=== PATIENT | female | born 1995 | race Caucasian/White ===

== ENCOUNTER 2020-04-13 06:28 | Emergency (ER) | payer MEDICAID, SELFPAY ==
[2020-04-13 06:36] VITALS: BP 132/81; PULSE 102; RESP 20; TEMP 36.6; O2SAT 97; BMI 34.0
--- NOTE | 2020-04-13 07:02 | ED_ITS ---
HPI - General Adult General Chief complaint: General Medical Stated complaint: Covid symptoms Time Seen by Provider: 04/13/20 07:01 History of Present Illness HPI narrative: Patient is a 25-year-old female presented today with coughing upper respiratory symptoms that been ongoing for about 2 days. Patient from home. Currently is about 23 weeks . Currently being follow at [facility]. Family member tested positive for the coronavirus. Patient denies any change in smell or taste. Currently is not having any new abdominal pain. Her current lower abdominal pain that is worse with sitting up. Improved with lying down. This pain is constant it is old. Had an ultrasound of this about a week ago. It shows good intrauterine . Patient denies any pain on urination. Denies any vaginal bleeding. No contraction. Patient from home Related Data Allergies Allergy/AdvReac Type Severity Reaction Status Date / Time No Known Allergies Allergy Unverified 01/06/20 16:16 [No Known Allergies*] Review of Systems Review of Systems: Constitutional: No Weight loss, No Fever, No Chills, No Night Sweats, No Fatigue, No Malaise ENT/Mouth: No Hearing loss, No Ear Pain, No Nasal Congestion, No Sinus Pain, No Hoarseness, No sore throat, No Rhinorrhea, No Swallowing Difficulty Eyes: No Eye Pain, No Swelling, No Redness, No Foreign Body, No Discharge, No Vision Changes Cardiovascular: No Chest Pain, No SOB, No Dyspnea on Exertion, No Orthopnea, No Edema, No Palpitations Respiratory: + Cough, No Sputum, No Wheezing, No Smoke Exposure, No Dyspnea Gastrointestinal: No Nausea, No Vomiting, No Diarrhea, No Constipation, No abdominal Pain, No Hematochezia, No Melena Genitourinary: no irregular bleeding, No Dysuria, No Urinary Frequency, No Hematuria, No Urinary Incontinence, No Urgency, No Flank Pain, No Urinary Flow Changes, No Hesitancy Musculoskeletal: No joint pain, No Myalgias, No Joint Swelling Skin: No Skin Lesions, No rash Neuro: No Weakness, No Numbness, No Paresthesias, No Loss of Consciousness, No Dizziness, No Headache Psych: No Anxiety/Panic, No Depression, No SI/HI/AH/VH, No Social Issues, Heme/Lymph: No Bruising, No Bleeding,No Lymphadenopathy Endocrine: No Polyuria, No Polydipsia, No Temperature Intolerance Yes all other systems are reviewed and are negative [facility] Past Medical History Medical History Social History Social History Advance Directives: No Physical Exam Vital Signs: Vital Signs: Last Vital Signs Temp 98 F 04/13/20 06:36 Pulse 102 H 04/13/20 06:36 Resp 20 04/13/20 06:36 BP 132/81 04/13/20 06:36 Pulse Ox 97 04/13/20 06:36 Body Mass Index 34.0 Appearance: Alert. Oriented X3. No acute distress. Eyes: Pupils equal, round and reactive to light. ENT: Pharynx normal. Neck: Normal inspection. Neck supple. No lymph nodes noted. No crepitus CVS: Normal heart rate and rhythm. Pulses normal. Normal S1 and S2 Respiratory: No respiratory distress. Breath sounds normal. No Wheezing. No rales Abdomen: Gravid abdomen with fundal height at the level above umbilicus. Skin: Skin warm and dry. Normal skin color. Normal skin turgor. Extremities: No lower extremity edema. Neurovascular intact to all extremities. No Lacerations. No Rash Neuro: Oriented X 3. No motor deficit. No sensory deficit. Moving all extermities. No slurred speech Medical Decision Making MDM Narrative Medical decision making narrative: Patient well-appearing O2 sat at 98% on room air. Will check heart tone. Will discharge patient home. Close follow- up on an outpatient basis. Likely has coronavirus will test for the virus. Patient is currently in stable condition will discharge will ask patient to follow strict home quarantine. Discharge Plan Discharge Clinical Impression: COVID-19 Patient Disposition: Home, Self-Care Instructions: COVID-19 (Coronavirus Disease 2019) (ED) Referrals: [facility] [Primary Care Provider] - 2 days
--- NOTE | 2020-04-13 07:18 | ED.GENADULT ---
HPI - General Adult General Chief complaint: General Medical Stated complaint: Covid symptoms Time Seen by Provider: 04/13/20 07:01 Related Data Allergies Allergy/AdvReac Type Severity Reaction Status Date / Time No Known Allergies Allergy Unverified 01/06/20 16:16 [No Known Allergies*] [facility], [facility] Past Medical History Medical History Social History Social History Advance Directives: No Physical Exam Vital Signs: Vital Signs: Last Vital Signs Temp 98 F 04/13/20 06:36 Pulse 102 H 04/13/20 06:36 Resp 20 04/13/20 06:36 BP 132/81 04/13/20 06:36 Pulse Ox 97 04/13/20 06:36 Body Mass Index 34.0 Discharge Plan Discharge Clinical Impression: COVID-19 Patient Disposition: Home, Self-Care Instructions: COVID-19 (Coronavirus Disease 2019) (ED) Referrals: [facility] [Primary Care Provider] - 2 days
== END 2020-04-13 08:01 | disposition home or self-care (01) ==
PROVIDERS: Emergency Provider Emergency Medicine Emergency Medical Services
DX: O98.512 Other viral diseases complicating pregnancy, second trimester (principal); O99.512 Diseases of the respiratory system complicating pregnancy, second trimester; U07.1 COVID-19; J98.8 Other specified respiratory disorders; Z3A.23 23 weeks gestation of pregnancy
CPT/HCPCS: 99283; U0003

== ENCOUNTER 2020-12-21 07:38 | Emergency (ER) | payer MEDICAID, SELFPAY ==
[2020-12-21 08:00] VITALS: BP 120/78; PULSE 80; RESP 18; TEMP 36.9; O2SAT 99; BMI 35.9
--- NOTE | 2020-12-21 08:54 | ED_ITS ---
HPI - General Adult General Chief complaint: Upper Respiratory Symptoms Stated complaint: flu like symptoms Time Seen by Provider: 12/21/20 08:43 Source: patient Mode of arrival: ambulatory Limitations: no limitations History of Present Illness HPI narrative: Patient comes emergency room complaining of 5 days of abdominal cramping, vomiting, diarrhea. Patient states she was exposed to a COVID patient five days ago. Related Data Previous Rx's Medication Instructions Recorded loperamide 2 mg tablet 2 mg PO Q4H PRN #10 tab 12/21/20 ondansetron HCl 4 mg tablet 4 mg PO Q6H PRN #10 tab 12/21/20 (Zofran) Allergies Allergy/AdvReac Type Severity Reaction Status Date / Time No Known Allergies Allergy Unverified 01/06/20 16:16 [No Known Allergies*] Review of Systems Review of Systems: Constitutional : No Weight loss, No Fever, No Chills, No Night Sweats, No Fatigue, No Malaise ENT/Mouth : No Hearing loss, No Ear Pain, No Nasal Congestion, No Sinus Pain, No Hoarseness, No sore throat, No Rhinorrhea, No Swallowing Difficulty Eyes: No Eye Pain, No Swelling, No Redness, No Foreign Body, No Discharge, No Vision Changes Cardiovascular : No Chest Pain, No SOB, No Dyspnea on Exertion, No Orthopnea, No Edema, No Palpitations Respiratory : No Cough, No Sputum, No Wheezing, No Smoke Exposure, No Dyspnea Gastrointestinal : Complaining of nausea, vomiting, diarrhea, abdominal cramping, No Hematochezia, No Melena Genitourinary : no irregular bleeding, No Dysuria, No Urinary Frequency, No Hematuria, No Urinary Incontinence, No Urgency, No Flank Pain, No Urinary Flow Changes, No Hesitancy Musculoskeletal : No joint pain, No Myalgias, No Joint Swelling Skin : No Skin Lesions, No rash Neuro : No Weakness, No Numbness, No Paresthesias, No Loss of Consciousness, No Dizziness, No Headache Psych : No Anxiety/Panic, No Depression, No SI/HI/AH/VH, No Social Issues, Heme/Lymph: No Bruising, No Bleeding,No Lymphadenopathy Endocrine : No Polyuria, No Polydipsia, No Temperature Intolerance PMFSH Past Medical History Medical History Asthma Social History Social History Patient Tobacco Use Status: Never used Tobacco Smoked in Last 30 Days: No Use of substances other than those prescribed or required for medical reasons: No Advance Directives: No Advance Directives Information Provided: No Physical Exam Vital Signs: Vital Signs: Last Vital Signs Temp 98.4 F 12/21/20 08:00 Pulse 82 12/21/20 10:24 Resp 14 12/21/20 10:24 BP 114/56 L 12/21/20 10:24 Pulse Ox 100 12/21/20 10:25 Body Mass Index 35.9 Const: Other: Appearance: Alert. Oriented X3. No acute distress. Eyes: Pupils equal, round and reactive to light. ENT: Pharynx normal. Neck: Normal inspection. Neck supple. No lymph nodes noted. No crepitus CVS: Normal heart rate and rhythm. Pulses normal. Normal S1 and S2 Respiratory: No respiratory distress. Breath sounds normal. No Wheezing. No rales Abdomen: Soft , mild diffuse abdominal cramping, No rigidity. No distention. good BS x4 Skin: Skin warm and dry. Normal skin color. Normal skin turgor. Extremities: No lower extremity edema. No Lacerations. No Rash Neuro: Oriented X 3. No motor deficit. No sensory deficit. Moving all extermities. No slurred speech. Course Course Course Narrative: Patient likely having a viral syndrome. Patient tested negative for COVID-19 Medical Decision Making Lab Data Result diagrams: 12/21/20 09:28 12/21/20 09:28 Labs: Lab Results 12/21/20 12/21/20 12/21/20 Range/Units 09:11 09:28 09:28 WBC 12.7 H (4.8-10.8) X10*3/uL RBC 4.64 (4.20-5.50) X10*6/uL Hgb 13.9 (12.0-16.0) g/dl Hct 40.3 (37-47) % MCV 86.9 (80-98) fL MCH 30.0 (27.0-33.0) pg MCHC 34.5 (31.0-35.0) g/dl RDW 11.9 (11.0-16.0) % Plt Count 298 (160-400) X10*3/uL MPV 9.4 (9.4-12.3) fL Immature Gran % (Auto) 0.4 (0.0-0.4) % Neut % (Auto) 84.3 H (45-73) % Lymph % (Auto) 10.7 L (20-40) % [place] % (Auto) 3.8 (2-11) % Eos % (Auto) 0.3 (0-4) % Baso % (Auto) 0.5 (0-2) % Lymph # (Auto) 1.4 (1.2-4.9) X10*3/uL [place] # (Auto) 0.5 (0.1-1.2) X10*3/uL Eos # (Auto) 0.0 (0.0-0.4) X10*3/uL Baso # (Auto) 0.1 (0.0-0.2) X10*3/uL Abs Immat Gran (auto) 0.05 H (0.00-0.03) X10*3/uL Absolute Neuts (auto) 10.7 H (2.0-8.3) X10*3/uL Absolute Nucleated RBC 0.000 (0.0-0.012) X10*3/uL Nucleated RBC % (auto) 0.0 (0.0-0.2) /100WBC Sodium 138 (135-145) mmol/L Potassium 4.1 (3.3-5.1) mmol/L Chloride 113 H (96-108) mmol/L Carbon Dioxide 19 L (22-29) mmol/L Anion Gap 10 L (12-20) BUN 7 L (9-16) mg/dL Creatinine 0.67 (0.5-1.4) mg/dL Estim Creat Clear Calc 125.7 Estimated GFR > 60 Random Glucose 114 (60-115) mg/dL Calcium 9.1 (8.4-10.2) mg/dL Total Bilirubin 0.4 (0.0-1.0) mg/dL Direct Bilirubin < 0.2 (0.0-0.5) mg/dL AST 17 (5-31) U/L ALT 19 (0-31) U/L Alkaline Phosphatase 64 (39-117) U/L Total Protein 7.0 (6.5-8.0) g/dL Albumin 4.3 (3.5-5.0) g/dL Urine Color Urine Appearance Urine pH (5.0-8.0) Ur Specific [place] (1.005-1.025) Urine Protein (NEG-TRACE) MG/DL Urine Glucose (UA) (NEG) MG/DL Urine Ketones (NEG) MG/DL Urine Blood (NEG) Urine Nitrite (NEG) Ur Leukocyte Esterase (NEG) Urine Test (NEGATIVE) COVID-19 (BRYAN) Negative (Negative) COVID-19 Clin Com See Note 12/21/20 12/21/20 Range/Units 10:23 10:23 WBC (4.8-10.8) X10*3/uL RBC (4.20-5.50) X10*6/uL Hgb (12.0-16.0) g/dl Hct (37-47) % MCV (80-98) fL MCH (27.0-33.0) pg MCHC (31.0-35.0) g/dl RDW (11.0-16.0) % Plt Count (160-400) X10*3/uL MPV (9.4-12.3) fL Immature Gran % (Auto) (0.0-0.4) % Neut % (Auto) (45-73) % Lymph % (Auto) (20-40) % [place] % (Auto) (2-11) % Eos % (Auto) (0-4) % Baso % (Auto) (0-2) % Lymph # (Auto) (1.2-4.9) X10*3/uL [place] # (Auto) (0.1-1.2) X10*3/uL Eos # (Auto) (0.0-0.4) X10*3/uL Baso # (Auto) (0.0-0.2) X10*3/uL Abs Immat Gran (auto) (0.00-0.03) X10*3/uL Absolute Neuts (auto) (2.0-8.3) X10*3/uL Absolute Nucleated RBC (0.0-0.012) X10*3/uL Nucleated RBC % (auto) (0.0-0.2) /100WBC Sodium (135-145) mmol/L Potassium (3.3-5.1) mmol/L Chloride (96-108) mmol/L Carbon Dioxide (22-29) mmol/L Anion Gap (12-20) BUN (9-16) mg/dL Creatinine (0.5-1.4) mg/dL Estim Creat Clear Calc Estimated GFR Random Glucose (60-115) mg/dL Calcium (8.4-10.2) mg/dL Total Bilirubin (0.0-1.0) mg/dL Direct Bilirubin (0.0-0.5) mg/dL AST (5-31) U/L ALT (0-31) U/L Alkaline Phosphatase (39-117) U/L Total Protein (6.5-8.0) g/dL Albumin (3.5-5.0) g/dL Urine Color YELLOW Urine Appearance CLEAR Urine pH 6.0 (5.0-8.0) Ur Specific [place] 1.015 (1.005-1.025) Urine Protein NEG (NEG-TRACE) MG/DL Urine Glucose (UA) NEG (NEG) MG/DL Urine Ketones NEG (NEG) MG/DL Urine Blood NEG (NEG) Urine Nitrite NEG (NEG) Ur Leukocyte Esterase NEG (NEG) Urine Test NEGATIVE (NEGATIVE) COVID-19 (BRYAN) (Negative) COVID-19 Clin Com Discharge Plan Discharge Clinical Impression: Acute viral syndrome Patient Disposition: Home, Self-Care Instructions: Viral Syndrome (ED) Additional Instructions: Drink plenty of fluids. Please follow-up with your primary care physician tomorrow. If you have any worsening or new symptoms, please return to the emergency room or call 911 Prescriptions: New ondansetron HCl [Zofran] 4 mg tablet 4 mg PO Q6H PRN (Reason: nausea and vomiting) Qty: 10 RF: 0 loperamide 2 mg tablet 2 mg PO Q4H PRN (Reason: loose stool) Qty: 10 RF: 0 Stand Alone Forms: Work/School Release
[2020-12-21 09:31] LABS: MANUAL DIFF FLAG NO
[2020-12-21] MEDS: Ondansetron ODT 4 MG TAB.RAPDIS TRANSLINGU (09:31)
[2020-12-21] MEDS: Loperamide HCl 2 MG CAPSULE 4 MG PO (09:31)
[2020-12-21 09:34] LABS: COVID-19 Test Negative (Negative); IDNOW Serial# 55D5AD1C
[2020-12-21 09:39] LABS: Basophils Absolute Auto 0.1 X10*3/uL (0.0-0.2); Basophils Percent Auto 0.5 % (0-2); Eosinophils Percent Auto 0.3 % (0-4); Hematocrit 40.3 % (37-47); Hemoglobin 13.9 g/dl (12.0-16.0); Imm Gran Abs Auto 0.05 X10*3/uL (0.00-0.03); Imm Gran Pct Auto 0.4 % (0.0-0.4); Lymphocytes Absolute Auto 1.4 X10*3/uL (1.2-4.9); Lymphocytes Percent Auto 10.7 % (20-40); Mean Corpuscular HGB Conc 34.5 g/dl (31.0-35.0); Mean Corpuscular Volume 86.9 fL (80-98); Mean Platelet Volume 9.4 fL (9.4-12.3); Monocytes Absolute Auto 0.5 X10*3/uL (0.1-1.2); Monocytes Percent Auto 3.8 % (2-11); Neutrophils Absolute Auto 10.7 X10*3/uL (2.0-8.3); Neutrophils Percent Auto 84.3 % (45-73); Platelet Count 298 X10*3/uL (160-400); Red Blood Count 4.64 X10*6/uL (4.20-5.50); Red Cell Distribution Width 11.9 % (11.0-16.0); White Blood Count 12.7 X10*3/uL (4.8-10.8)
[2020-12-21 09:53] LABS: Alanine Aminotransferase 19 U/L (0-31); Albumin Level 4.3 g/dL (3.5-5.0); Alkaline Phosphatase 64 U/L (39-117); Anion Gap 10 (12-20); Aspartate Amino Transferase 17 U/L (5-31); Bilirubin Direct < 0.2 mg/dL (0.0-0.5); Bilirubin Total 0.4 mg/dL (0.0-1.0); Calcium 9.1 mg/dL (8.4-10.2); Carbon Dioxide 19 mmol/L (22-29); Chloride 113 mmol/L (96-108); Creatinine Clr Calc Pharmacy 125.7; Estimated Glomerular Filt Rate > 60; Glucose Random 114 mg/dL (60-115); Potassium 4.1 mmol/L (3.3-5.1); Sodium 138 mmol/L (135-145)
[2020-12-21 10:24] VITALS: BP 114/56; PULSE 82; RESP 14; O2SAT 100
[2020-12-21 10:25] VITALS: PULSE 82; O2SAT 100
[2020-12-21 10:26] LABS: Blood Urea Nitrogen 7 mg/dL (9-16)
[2020-12-21 10:37] LABS: Glucose Urine UA NEG (NEG); Leukocyte Esterase Urine NEG (NEG); Nitrite Urine NEG (NEG); Specific Gravity - Urine 1.015 (1.005-1.025); Urine Blood NEG (NEG); Urine Ketones NEG (NEG); Urine Protein NEG (NEG-TRACE)
[2020-12-21 10:38] LABS: Appearance Urine CLEAR; Color Urine YELLOW
[2020-12-21 10:39] LABS: UPreg QC Valid YES; Urine Pregnancy NEGATIVE (NEGATIVE)
== END 2020-12-21 11:44 | disposition home or self-care (01) ==
PROVIDERS: Emergency Provider Emergency Medicine
DX: B34.9 Viral infection, unspecified (principal); Z79.899 Other long term (current) drug therapy; Z20.822 Contact with and (suspected) exposure to COVID-19
CPT/HCPCS: 36415; 80048; 80076; 81003; 81025; 85025; 87635; 99283; 99284

== ENCOUNTER 2021-02-23 07:01 | Emergency (ER) | payer MEDICAID, SELFPAY ==
--- NOTE | ~2021-02-23 | US_ITS ---
EXAMINATION: ULTRASOUND OF THE PELVIS CLINICAL INFORMATION: Right-sided severe pain.. COMPARISON: 08/25/2019. TECHNIQUE: Transabdominal and transvaginal pelvic ultrasound. Doppler evaluation with spectral analysis was performed. A transvaginal study was performed in addition to the transabdominal study which did not yield an adequate examination of the uterus and ovaries due to superimposed distended gas-filled loops of bowel. FINDINGS: The uterus is normal in size and appearance, measuring 8.3 x 4.5 x 5.1 cm longitudinally, anteroposteriorly and transversely. The endometrial stripe thickness is normal, measuring 0.5 cm in thickness. Calcifications may be present along the endometrium. Multiple uterine fibroids are again noted. Anterior fundal fibroid measures 2.1 x 1.5 x 1.9 cm. This is slightly increased in size from prior. Posterior uterine body fibroid measures up to 1.7 cm, similar to prior. There is an anterior uterine body fibroid measuring 1.3 cm, also similar to prior. The ovaries bilaterally are visualized and appear normal, with the right ovary measuring 3.6 x 1.5 x 2.5 cm and the left ovary measuring 2.9 x 1.3 x 2.2 cm. There are normal arterial and venous spectral waveforms bilaterally. No adnexal mass or free fluid collection seen. US/US pelvic ovarian doppler IMPRESSION: No active ovarian torsion at this time. No adnexal mass. Multiple uterine fibroids again noted. The largest fibroid measures up to 2.1 cm near the uterine fundus, slightly increased in size from prior.
--- NOTE | ~2021-02-23 | US_ITS ---
EXAMINATION: ULTRASOUND OF THE PELVIS CLINICAL INFORMATION: Right-sided severe pain.. COMPARISON: 08/25/2019. TECHNIQUE: Transabdominal and transvaginal pelvic ultrasound. Doppler evaluation with spectral analysis was performed. A transvaginal study was performed in addition to the transabdominal study which did not yield an adequate examination of the uterus and ovaries due to superimposed distended gas-filled loops of bowel. FINDINGS: The uterus is normal in size and appearance, measuring 8.3 x 4.5 x 5.1 cm longitudinally, anteroposteriorly and transversely. The endometrial stripe thickness is normal, measuring 0.5 cm in thickness. Calcifications may be present along the endometrium. Multiple uterine fibroids are again noted. Anterior fundal fibroid measures 2.1 x 1.5 x 1.9 cm. This is slightly increased in size from prior. Posterior uterine body fibroid measures up to 1.7 cm, similar to prior. There is an anterior uterine body fibroid measuring 1.3 cm, also similar to prior. The ovaries bilaterally are visualized and appear normal, with the right ovary measuring 3.6 x 1.5 x 2.5 cm and the left ovary measuring 2.9 x 1.3 x 2.2 cm. There are normal arterial and venous spectral waveforms bilaterally. No adnexal mass or free fluid collection seen. US/US pelvic and transvaginal IMPRESSION: No active ovarian torsion at this time. No adnexal mass. Multiple uterine fibroids again noted. The largest fibroid measures up to 2.1 cm near the uterine fundus, slightly increased in size from prior.
--- NOTE | ~2021-02-23 | CT_ITS ---
EXAMINATION: CT ABDOMEN AND PELVIS WITHOUT CONTRAST CLINICAL INFORMATION: Right lower quadrant and right flank pain COMPARISON: Previous pelvic ultrasound most recent from earlier the same day and previous CT of the abdomen and pelvis March 2017 TECHNIQUE: Multidetector volumetric imaging was performed from the superior aspect of the liver through the pubic symphysis. Sagittal and coronal reformatted images were obtained on the technologist's workstation. This CT examination was performed using dose optimization techniques as appropriate, variously including the following: *Automated exposure control *Adjustment of mA and/or kV according to patient size (this includes techniques or standardized protocols for targeted exams where dose is matched to indication/reason for exam; i.e. extremities or head) *Use of iterative reconstruction technique DLP: 712 mGy-cm FINDINGS: LUNG BASES: The visualized lung bases are unremarkable. LIVER, GALLBLADDER, AND BILIARY TREE: There are 2 low-attenuation liver lesions high in the dome of the right lobe measuring 5 mm and in the posterior segment of the right lobe measuring 5 x 10 mm. These are stable from 2017 and probably represent small cysts. The liver is otherwise unremarkable. The gallbladder is unremarkable. There is no biliary duct dilatation. PANCREAS: Unremarkable. SPLEEN: Unremarkable. ADRENAL GLANDS: Unremarkable. KIDNEYS AND URETERS: There are bilateral low-attenuation renal lesions that are stable compared to previous CT March 2017 and probably represent cysts. These measure 1 cm in the upper pole right kidney axial image 19, 1 cm in the anterior lower pole right kidney axial image 23 and 1.4 cm exophytic to the lower pole the left kidney axial image 36 series 3. No imaging follow-up needed. The kidneys are otherwise unremarkable. There is a small 1 mm nonobstructing stone in the lower pole of the right kidney. No hydronephrosis is seen. BLADDER: Not optimally distended but appears unremarkable. GASTROINTESTINAL TRACT: The small and large bowel are unremarkable. The appendix is unremarkable. ABDOMINAL WALL: No significant hernia is appreciated. LYMPH NODES: Normal. VASCULAR: Unremarkable. PELVIC VISCERA: There is a lobulated contour and calcifications in the uterus consistent with fibroids. The ovaries are unremarkable. OSSEOUS STRUCTURES: Unremarkable. CT/CT abdomen pelvis wo con IMPRESSION: Small nonobstructing right renal stone. Probable bilateral renal and liver cysts stable from March 2017 exam.
--- NOTE | 2021-02-23 07:13 | ED_ITS ---
HPI - Abdominal Pain General Chief Complaint: Abdominal Pain Stated Complaint: abd pain Time Seen by Provider: 02/23/21 07:13 Source: patient Mode of arrival: ambulatory Limitations: no limitations History of Present Illness MD elicited complaint: abdominal pain Pertinent past history: other (ovarian cysts) Onset (ago): hour(s) (couple ) Pain Consistency: constant Location: RLQ Severity: severe Quality: stabbing Radiation: other (across entire lower abdomen) Migration to: suprapubic Exacerbating factors: movement Relieving factors: nothing Context: history of similar episodes Associated symptoms: nausea and vomiting Related Data Previous Rx's Medication Instructions Recorded loperamide 2 mg tablet 2 mg PO Q4H PRN #10 tab 12/21/20 ondansetron HCl 4 mg tablet 4 mg PO Q6H PRN #10 tab 12/21/20 (Zofran) cyclobenzaprine 10 mg tablet 10 mg PO TID PRN #14 tab 02/23/21 ibuprofen 600 mg tablet 600 mg PO Q6H PRN #30 tab 02/23/21 ondansetron 4 mg disintegrating 4 mg PO Q8H PRN #20 tab 02/23/21 tablet Allergies Allergy/AdvReac Type Severity Reaction Status Date / Time No Known Allergies Allergy Unverified 01/06/20 16:16 [No Known Allergies*] Review of Systems Review of Systems Constitutional : No Weight loss, No Fever, No Chills ENT/Mouth : No sore throat, No Rhinorrhea Eyes: No Swelling, No Redness Cardiovascular : No Chest Pain, No SOB, NoEdema Respiratory : No Cough, No Sputum, No Wheezing Gastrointestinal : Positive Nausea, Positive Vomiting, no Diarrhea, positive abdominal Pain, No Hematochezia, No Melena Genitourinary : No Dysuria, No Urinary Frequency, No Hematuria, No Urgency Musculoskeletal : No joint pain, No Myalgias, No Joint Swelling Skin : No Skin Lesions, No rash Neuro : No Weakness, No Numbness, No Dizziness, No Headache Psych : No Anxiety/Panic, No Depression Heme/Lymph: No Bruising, No Lymphadenopathy Endocrine : No Polyuria, No Polydipsia All other systems reviewed and are negative. Physical Exam Vital Signs: Vital Signs: Last Vital Signs Temp 98.5 F 02/23/21 09:22 Pulse 85 02/23/21 09:22 Resp 17 02/23/21 09:22 BP 114/64 02/23/21 09:22 Pulse Ox 100 02/23/21 09:22 Body Mass Index 33.6 Appearance: Alert. Oriented X3. anxious in pain mild acute distress. Eyes: Pupils equal, round and reactive to light. ENT: Pharynx normal. Neck: Normal inspection. Neck supple. CVS: Normal heart rate and rhythm. Pulses normal. Respiratory: No respiratory distress. Breath sounds normal. Abdomen: Soft and moderate RLQ pain no rebound - no CVA ttp Skin: Skin warm and dry. pale skin color. Normal skin turgor. Extremities: No lower extremity edema. No calf ttp Neuro: Oriented X 3. No motor deficit. No sensory deficit. Course Course Course Narrative: c/o pain still at this time will obtain CT scan to r/o renal colic other than fibroids no other acute findings to cause her pain stable for DC MDM - Abdominal Pain MDM Narrative Medical decision making narrative: 26 yo female with hx of ovarian cysts / uterine fibroids here with c/o R side abrupt onset lower abdominal pain that radiates across abdomen reminds her of her prior cyst - at this time will obtain labs, UA/UPT (6 months PP//not ) US to evaluate ovaries. IV medications for pain. Dispo per results and findings. Differential Diagnosis Differential diagnosis: Likely abdominal pain, calculus of kidney, ovarian cyst and renal colic; Unlikely aortic dissection, gastroenteritis or mesenteric ischemia Lab Data Result diagrams: 02/23/21 07:46 02/23/21 07:46 Labs: Lab Results 02/23/21 02/23/21 02/23/21 Range/Units 07:46 07:46 07:46 WBC 7.3 (4.8-10.8) X10*3/uL RBC 4.33 (4.20-5.50) X10*6/uL Hgb 13.1 (12.0-16.0) g/dl Hct 37.9 (37.0-47.0) % MCV 87.5 (80.0-98.0) fL MCH 30.3 (27.0-33.0) pg MCHC 34.6 (31.0-35.0) g/dl RDW 11.9 (11.0-16.0) % Plt Count 239 (160-400) X10*3/uL MPV 9.5 (9.4-12.3) fL Immature Gran % (Auto) 0.3 (0.0-0.4) % Neut % (Auto) 65.2 (45-73) % Lymph % (Auto) 25.2 (20-40) % [place] % (Auto) 6.8 (2-11) % Eos % (Auto) 1.8 (0-4) % Baso % (Auto) 0.7 (0-2) % Lymph # (Auto) 1.9 (1.2-4.9) X10*3/uL [place] # (Auto) 0.5 (0.1-1.2) X10*3/uL Eos # (Auto) 0.1 (0.0-0.4) X10*3/uL Baso # (Auto) 0.1 (0.0-0.2) X10*3/uL Abs Immat Gran (auto) 0.02 (0.00-0.03) X10*3/uL Absolute Neuts (auto) 4.8 (2.0-8.3) x10*3/uL Absolute Nucleated RBC 0.000 (0.0-0.012) X10*3/uL Nucleated RBC % (auto) 0.0 (0.0-0.2) /100WBC Sodium 138 (135-145) mmol/L Potassium 4.1 (3.3-5.1) mmol/L Chloride 108 (96-108) mmol/L Carbon Dioxide 26 (22-29) mmol/L Anion Gap 8 L (12-20) BUN 9 (9-16) mg/dL Creatinine 0.77 (0.5-1.4) mg/dL Estim Creat Clear Calc 113.1 Estimated GFR > 60 Random Glucose 107 (60-115) mg/dL Calcium 8.5 D (8.4-10.2) mg/dL Magnesium 1.8 (1.6-2.6) mg/dL Total Bilirubin 0.9 (0.0-1.0) mg/dL Direct Bilirubin 0.3 (0.0-0.5) mg/dL AST 17 (5-31) U/L ALT 14 (0-31) U/L Alkaline Phosphatase 52 (39-117) U/L Total Protein 6.1 L (6.5-8.0) g/dL Albumin 3.8 (3.5-5.0) g/dL Lipase 37 (8-78) U/L Urine Color Urine Appearance Urine pH (5.0-8.0) Ur Specific [place] (1.005-1.025) Urine Protein (NEG-TRACE) MG/DL Urine Glucose (UA) (NEG) MG/DL Urine Ketones (NEG) MG/DL Urine Blood (NEG) Urine Nitrite (NEG) Ur Leukocyte Esterase (NEG) Urine RBC (0) /HPF Urine WBC (0-4) /HPF Ur Squamous Epith Cells /LPF Urine Bacteria /LPF Urine Mucus /LPF Urine Test (NEGATIVE) COVID-19 (BRYAN) Negative (Negative) COVID-19 Clin Com See Note 02/23/21 02/23/21 Range/Units 09:19 09:19 WBC (4.8-10.8) X10*3/uL RBC (4.20-5.50) X10*6/uL Hgb (12.0-16.0) g/dl Hct (37.0-47.0) % MCV (80.0-98.0) fL MCH (27.0-33.0) pg MCHC (31.0-35.0) g/dl RDW (11.0-16.0) % Plt Count (160-400) X10*3/uL MPV (9.4-12.3) fL Immature Gran % (Auto) (0.0-0.4) % Neut % (Auto) (45-73) % Lymph % (Auto) (20-40) % [place] % (Auto) (2-11) % Eos % (Auto) (0-4) % Baso % (Auto) (0-2) % Lymph # (Auto) (1.2-4.9) X10*3/uL [place] # (Auto) (0.1-1.2) X10*3/uL Eos # (Auto) (0.0-0.4) X10*3/uL Baso # (Auto) (0.0-0.2) X10*3/uL Abs Immat Gran (auto) (0.00-0.03) X10*3/uL Absolute Neuts (auto) (2.0-8.3) x10*3/uL Absolute Nucleated RBC (0.0-0.012) X10*3/uL Nucleated RBC % (auto) (0.0-0.2) /100WBC Sodium (135-145) mmol/L Potassium (3.3-5.1) mmol/L Chloride (96-108) mmol/L Carbon Dioxide (22-29) mmol/L Anion Gap (12-20) BUN (9-16) mg/dL Creatinine (0.5-1.4) mg/dL Estim Creat Clear Calc Estimated GFR Random Glucose (60-115) mg/dL Calcium (8.4-10.2) mg/dL Magnesium (1.6-2.6) mg/dL Total Bilirubin (0.0-1.0) mg/dL Direct Bilirubin (0.0-0.5) mg/dL AST (5-31) U/L ALT (0-31) U/L Alkaline Phosphatase (39-117) U/L Total Protein (6.5-8.0) g/dL Albumin (3.5-5.0) g/dL Lipase (8-78) U/L Urine Color STRAW Urine Appearance HAZY Urine pH 6.0 (5.0-8.0) Ur Specific [place] <= 1.005 (1.005-1.025) Urine Protein NEG (NEG-TRACE) MG/DL Urine Glucose (UA) NEG (NEG) MG/DL Urine Ketones NEG (NEG) MG/DL Urine Blood NEG (NEG) Urine Nitrite NEG (NEG) Ur Leukocyte Esterase TRACE H (NEG) Urine RBC 0 (0) /HPF Urine WBC 1-4 (0-4) /HPF Ur Squamous Epith Cells 1+ /LPF Urine Bacteria NONE /LPF Urine Mucus TRACE /LPF Urine Test NEGATIVE (NEGATIVE) COVID-19 (BRYAN) (Negative) COVID-19 Clin Com Discharge Plan Discharge Clinical Impression: Abdominal pain Qualifiers: Abdominal location: right lower quadrant Qualified Code(s): R10.31 - Right lower quadrant pain Fibroid, uterine Qualifiers: Uterine leiomyoma location: unspecified location Qualified Code(s): D25.9 - Leiomyoma of uterus, unspecified Patient Disposition: Home, Self-Care Instructions: Abdominal Pain (ED) Additional Instructions: return to ED for any worsening symptoms or concerns please follow up with OBGYN Prescriptions: New cyclobenzaprine 10 mg tablet 10 mg PO TID PRN (Reason: muscle spasm) Qty: 14 RF: 0 ibuprofen 600 mg tablet 600 mg PO Q6H PRN (Reason: pain) Qty: 30 RF: 0 ondansetron 4 mg tablet,disintegrating 4 mg PO Q8H PRN (Reason: nausea and vomiting) Qty: 20 RF: 0 No Action ondansetron HCl [Zofran] 4 mg tablet 4 mg PO Q6H PRN (Reason: nausea and vomiting) Qty: 10 RF: 0 loperamide 2 mg tablet 2 mg PO Q4H PRN (Reason: loose stool) Qty: 10 RF: 0 Referrals: Dale Louis MD [Physician] - 2 weeks Stand Alone Forms: Work/School Release [facility] Past Medical History Attestation statement: The following information was validated with the patient. Medical History Asthma Ovarian cyst Uterine fibroid Social History Social History (Updated 02/23/21 @ 07:44 by Pamela Perez DO) Alcohol intake: never Patient Tobacco Use Status: Never used Tobacco Use of substances other than those prescribed or required for medical reasons: No Advance Directives: No
[2021-02-23 07:35] VITALS: BP 122/76; PULSE 91; RESP 16; TEMP 36.8; O2SAT 98; BMI 33.6
[2021-02-23 07:52] LABS: MANUAL DIFF FLAG NO
[2021-02-23 07:53] LABS: Basophils Absolute Auto 0.1 X10*3/uL (0.0-0.2); Basophils Percent Auto 0.7 % (0-2); Eosinophils Absolute Auto 0.1 X10*3/uL (0.0-0.4); Eosinophils Percent Auto 1.8 % (0-4); Hematocrit 37.9 % (37.0-47.0); Hemoglobin 13.1 g/dl (12.0-16.0); Imm Gran Abs Auto 0.02 X10*3/uL (0.00-0.03); Imm Gran Pct Auto 0.3 % (0.0-0.4); Lymphocytes Absolute Auto 1.9 X10*3/uL (1.2-4.9); Lymphocytes Percent Auto 25.2 % (20-40); Mean Corpuscular HGB Conc 34.6 g/dl (31.0-35.0); Mean Corpuscular Hemoglobin 30.3 pg (27.0-33.0); Mean Corpuscular Volume 87.5 fL (80.0-98.0); Mean Platelet Volume 9.5 fL (9.4-12.3); Monocytes Absolute Auto 0.5 X10*3/uL (0.1-1.2); Monocytes Percent Auto 6.8 % (2-11); Neutrophils Absolute Auto 4.8 x10*3/uL (2.0-8.3); Neutrophils Percent Auto 65.2 % (45-73); Platelet Count 239 X10*3/uL (160-400); Red Blood Count 4.33 X10*6/uL (4.20-5.50); Red Cell Distribution Width 11.9 % (11.0-16.0); White Blood Count 7.3 X10*3/uL (4.8-10.8)
[2021-02-23] MEDS: diphenhydrAMINE HCL 50 MG/ML VIAL 25 MG IVPUSH (07:55)
[2021-02-23] MEDS: 0.9 % Sodium Chloride 1,000 ML 999 ML IVCONT (07:55)
[2021-02-23] MEDS: Metoclopramide HCl 10 MG/2 ML VIAL IVPUSH (07:58)
[2021-02-23] MEDS: Ketorolac Tromethamine 15 MG/ML VIAL 30 MG IVPUSH (07:58)
[2021-02-23 08:07] LABS: COVID-19 Test Negative (Negative)
[2021-02-23 08:20] LABS: Alanine Aminotransferase 14 U/L (0-31); Albumin Level 3.8 g/dL (3.5-5.0); Alkaline Phosphatase 52 U/L (39-117); Anion Gap 8 (12-20); Aspartate Amino Transferase 17 U/L (5-31); Bilirubin Direct 0.3 mg/dL (0.0-0.5); Bilirubin Total 0.9 mg/dL (0.0-1.0); Blood Urea Nitrogen 9 mg/dL (9-16); Calcium 8.5 mg/dL (8.4-10.2); Carbon Dioxide 26 mmol/L (22-29); Chloride 108 mmol/L (96-108); Creatinine Clr Calc Pharmacy 113.1; Estimated Glomerular Filt Rate > 60; Glucose Random 107 mg/dL (60-115); Lipase 37 U/L (8-78); Magnesium 1.8 mg/dL (1.6-2.6); Potassium 4.1 mmol/L (3.3-5.1); Sodium 138 mmol/L (135-145); Total Protein 6.1 g/dL (6.5-8.0)
[2021-02-23 09:22] VITALS: BP 114/64; PULSE 85; RESP 17; TEMP 36.9; O2SAT 100
[2021-02-23 09:26] LABS: Appearance Urine HAZY; Color Urine STRAW; Glucose Urine UA NEG (NEG); Leukocyte Esterase Urine TRACE (NEG); Nitrite Urine NEG (NEG); Specific Gravity - Urine <= 1.005 (1.005-1.025); UACC Culture Trigger YES; Urine Blood NEG (NEG); Urine Ketones NEG (NEG); Urine Protein NEG (NEG-TRACE)
[2021-02-23 09:28] LABS: UPreg QC Valid YES; Urine Pregnancy NEGATIVE (NEGATIVE)
[2021-02-23 09:41] LABS: Mucus Urine TRACE /LPF; RBC Urine 0 /HPF (0); Squamous Epithelial Cell Urine 1+ /LPF
== END 2021-02-23 11:11 | disposition home or self-care (01) ==
PROVIDERS: Emergency Provider Emergency Medicine
DX: R10.31 Right lower quadrant pain (principal); D25.9 Leiomyoma of uterus, unspecified; Z20.822 Contact with and (suspected) exposure to COVID-19
CPT/HCPCS: 36415; 74176; 76830; 76856; 80048; 80076; 81001; 81025; 83690; 83735; 85025; 87086; 87635; 93975; 96361; 96374; 96375; 99284; J1200; J1885; J2765

== ENCOUNTER 2022-01-29 16:40 | Emergency (ER) | payer MEDICAID, SELFPAY ==
[2022-01-29 16:47] VITALS: BP 107/67; PULSE 90; RESP 18; TEMP 37.1; O2SAT 98; BMI 31.1
== END 2022-01-29 19:05 | disposition left against medical advice (07) ==
PROVIDERS: Emergency Provider Emergency Medicine
DX: L03.011 Cellulitis of right finger (principal)
CPT/HCPCS: 99281

== ENCOUNTER 2022-01-30 07:51 | Emergency (ER) | payer MEDICAID, SELFPAY ==
[2022-01-30 07:52] VITALS: BP 129/76; PULSE 94; RESP 16; TEMP 36.3; O2SAT 98; BMI 31.1
--- NOTE | 2022-01-30 08:52 | ED.SKABFB ---
HPI - Skin/Abscess/Foreign Bdy General Chief complaint: Extremity Problem Stated complaint: infected finger Time Seen by Provider: 01/30/22 08:20 Source: patient Mode of arrival: ambulatory Limitations: no limitations History of Present Illness HPI narrative: 6 months - no OB issues complaint: abscess/boil and lesion Onset (ago): week(s) (1) Tetanus up to date: yes Location: R hand (little finger) Severity: mild Quality: aching Relieving factors: none Exacerbating factors: palpation Context: other (pulled hangnail and finger became swollen and red at tip, yellow stuff near nail) Associated symptoms: denies other symptoms Treatments prior to arrival: none Related Data Previous Rx's Medication Instructions Recorded loperamide 2 mg tablet 2 mg PO Q4H PRN loose stool #10 12/21/20 tabs ondansetron HCl 4 mg tablet 4 mg PO Q6H PRN nausea and 12/21/20 (Zofran) vomiting #10 tabs cyclobenzaprine 10 mg tablet 10 mg PO TID PRN muscle spasm #14 02/23/21 tabs ibuprofen 600 mg tablet 600 mg PO Q6H PRN pain #30 tabs 02/23/21 ondansetron 4 mg disintegrating 4 mg PO Q8H PRN nausea and 02/23/21 tablet vomiting #20 tabs amoxicillin 500 mg capsule 500 mg PO TID 7 days #21 caps 01/30/22 Allergies Allergy/AdvReac Type Severity Reaction Status Date / Time No Known Allergies Allergy Verified 01/30/22 07:52 [No Known Allergies*] Review of Systems Review of Systems: Constitutional : No Fever, No Chills Cardiovascular : No Chest Pain, No SOB Respiratory : No Cough, No Sputum Gastrointestinal : No Nausea, No Vomiting, No Diarrhea, No abdominal Pain Genitourinary : No Dysuria, No Hematuria Musculoskeletal : No joint pain, No Myalgias, No Joint Swelling Skin : No Skin Lesions, positive skin rash Neuro : No Weakness, No Numbness, No Headache PMFSH Past Medical History Medical History Asthma Ovarian cyst Uterine fibroid Social History Social History (Updated 02/23/21 @ 07:44 by Michelle Perez DO) Alcohol intake: never Patient Tobacco Use Status: Never used Tobacco Advance Directives: No Advance Directives Information Provided: No Physical Exam Vital Signs: Vital Signs: Last Vital Signs Temp 97.3 F 01/30/22 07:52 Pulse 94 01/30/22 07:52 Resp 16 01/30/22 07:52 BP 129/76 01/30/22 07:52 Pulse Ox 98 01/30/22 07:52 O2 Del Method 01/30/22 07:52 BMI result Body Mass Index 31.1 Appearance: Alert. Oriented X3. No acute distress. Eyes: Pupils equal, round and reactive to light. ENT: Pharynx normal. Neck: Normal inspection. CVS: Pulses normal. Respiratory: No respiratory distress. Abdomen: atraumatic Skin: Skin warm and dry. R little finger - paronychia yellow under proximal nail fold - redness to nail fold, mild swelling as well onto medial finger pad but no other swelling noted. Extremities: No lower extremity edema. Neuro: Oriented X 3. No motor deficit. No sensory deficit. MDM - Skin/Abscess/Foreign Bdy MDM Narrative Medical decision making narrative: 26 yo female isolated paronychia from [facility] no hx of diabetes - she is will I/D and start on amoxicillin. Return precuations ordered. Procedures Abscess I/D Site: upper extremity (little finger) Side (if applicable): right Technique: needle aspiration Amount of fluid expressed (mL): 2 Sent for culture/gram staining?: No Irrigation: No Packing used?: none Discharge Plan Discharge Clinical Impression: Paronychia of finger Qualifiers: Laterality: right Qualified Code(s): L03.011 - Cellulitis of right finger Patient Disposition: Home, Self-Care Instructions: Paronychia (ED) Additional Instructions: return to ED for any worsening symptoms or concerns soak finger three times a day in warm water for the next two days return for increased redness, swelling, pain, fevers take all antibiotics Prescriptions: New amoxicillin 500 mg capsule 500 mg PO TID 7 Days Qty: 21 0RF No Action ondansetron HCl [Zofran] 4 mg tablet 4 mg PO Q6H PRN (Reason: nausea and vomiting) Qty: 10 0RF loperamide 2 mg tablet 2 mg PO Q4H PRN (Reason: loose stool) Qty: 10 0RF Rx Instructions: administer after each loose stool until symptoms controlled; do not exceed 8 mg per 24 hrs cyclobenzaprine 10 mg tablet 10 mg PO TID PRN (Reason: muscle spasm) Qty: 14 0RF ibuprofen 600 mg tablet 600 mg PO Q6H PRN (Reason: pain) Qty: 30 0RF ondansetron 4 mg tablet,disintegrating 4 mg PO Q8H PRN (Reason: nausea and vomiting) Qty: 20 0RF Stand Alone Forms: Work/School Release
== END 2022-01-30 09:10 | disposition home or self-care (01) ==
PROVIDERS: Emergency Provider Emergency Medicine
DX: L03.011 Cellulitis of right finger (principal)
CPT/HCPCS: 10060; 99282; 99283; 99284

== ENCOUNTER 2024-12-17 00:32 | Inpatient (IN) | payer MEDICAID, SELFPAY ==
[2024-12-17] VITALS (22 sets, daily range): BP systolic 91–117; BP diastolic 44–73; PULSE 75–95; RESP 13–21; TEMP 36.3–37.6; O2SAT 93–99; BMI 28.1; BMI 27.5
--- NOTE | 2024-12-17 | ECG_ITS ---
Test Reason : VHEST PAIN Blood Pressure : */* mmHG Vent. Rate : 88 BPM Atrial Rate : 88 BPM P-R Int : 172 ms QRS Dur : 76 ms QT Int : 352 ms P-R-T Axes : 48 48 31 degrees QTcB Int : 425 ms Normal sinus rhythm Normal ECG When compared with ECG of 26-Nov-2016 06:51, No significant change was found Referred By: Generic ED Physician Electronically Signed By: NAVDEEP DAVIS
--- NOTE | ~2024-12-17 | CT_ITS ---
CLINICAL HISTORY: Epigastric Pain; LFT abnormality CT abdomen and pelvis with contrast Comparison: None provided. Findings: Minimal bilateral lower lobe subsegmental atelectasis. There is gallbladder wall thickening. No radiopaque gallstones visualized. The liver is enlarged. Trace perihepatic fluid present. Mild periportal edema present. The IVC appears distended. The spleen is enlarged. The pancreas and bilateral adrenal glands are within normal limits for appearance. No hydronephrosis. No bowel obstruction, pneumoperitoneum, or pneumatosis. Pelvic contents unremarkable. No bladder wall thickening. The bladder is underdistended. Normal appendix. No acute fracture visualized. IMPRESSION: 1. Nonspecific gallbladder wall thickening. This may be related to generalized 3rd spacing of fluid or acute cholecystitis. Clinical correlation is advised. May consider gallbladder ultrasound examination and/or nuclear medicine HIDA scan for further evaluation as clinically directed. 2. Mild periportal edema. This may be related to recent volume administration/fluid overload given the distended IVC. Acute hepatitis may produce a similar appearance. Clinical correlation is advised. 3. Hepatosplenomegaly. This document has been electronically signed by: Krunal Falcon MD on 12/17/2024 04:37:58
--- NOTE | ~2024-12-17 | MR_ITS ---
CLINICAL HISTORY: elevated lfts after lap lou Exam: MRCP without IV contrast Comparison: CT/REG/SR - CT ABDOMEN PELVIS W IV CON - 12/17/24 03:11 EDT Findings: Duplicated sets of images were submitted for review. Motion artifacts mildly degraded exam. Status post laparoscopic cholecystectomy, loculated mildly heterogeneous fluid collection in the gallbladder fossa 1.5 x 2.3 cm on the axial plane, 5.3 cm in CC dimension, hypointense on T1, heterogeneously hyperintense on T2. No intrahepatic or extrahepatic bile duct dilatation. No choledocholithiasis. Pancreatic duct is not dilated. Hepatomegaly, liver measures 21 cm in craniocaudad dimension, no steatosis. Multiple T1 hypointense, T2 bright lesions scattered throughout the liver, most likely cysts, dominant cyst 1.1 cm posterior segment 6. Ill-defined subcapsular T2 hyperintense signal surrounding a few small cysts right inferior hepatic lobe, 1.8 x 2.5 cm, indeterminate. Spleen is enlarged, 13.5 cm in length, 4 mm T2 hyperintense, T1 hypointense lesion anterior spleen, probably cyst. Pancreas, adrenal glands are unremarkable. Several simple appearing renal cysts on the right up to 1.6 cm, complex 6 mm T1 hyperintense, T2 hyperintense lesion right kidney upper pole, exophytic T1 hyperintense, T2 hypointense lesion lower pole left kidney, these complex lesions may reflect hemorrhagic cysts or cyst containing proteinaceous contents, incompletely evaluated by this noncontrast exam. Unremarkable included GI tract. Remarkable vasculature. Enlarged quirino hepatis and portacaval lymph nodes up to 1.4 cm in short axis, unchanged. Small ascites more conspicuous in the right upper quadrant extending to the gallbladder fossa. Minimal bilateral pleural effusion with associated compressive atelectasis. Body wall edema. No acute osseous abnormality. Impression: 1. Status post cholecystectomy, loculated most likely postsurgical fluid collection in the gallbladder fossa. 2. Small ascites extending to the gallbladder fossa, body wall edema, increased when compared to prior CT, may be related to fluid overload or 3rd spacing, bile leak can not be excluded. HIDA scan can be helpful further evaluation if warranted. 3. Stable hepatosplenomegaly, multiple hepatic and renal cysts, please correlate clinically for polycystic kidney or liver disease. 4. Ill-defined T2 hyperintense signal right inferior hepatic lobe, not well seen on prior CT, indeterminate and incompletely evaluated, recommend outpatient liver MRI without and with IV contrast. 5. Stable right upper quadrant lymphadenopathy, probably reactive, recommend follow-up to ensure resolution. This document has been electronically signed by: Rosa De Oliveira MD on 12/20/2024 10:34:45
--- NOTE | ~2024-12-17 | NM_ITS ---
EXAMINATION: NM HEPATOBILIARY WITH PHARM HISTORY: ? Cholecystitis. TECHNIQUE: An hepatobiliary scan was performed following the intravenous administration of 5 mCi technetium 99m-mebrofenin. Sequential images were obtained over 1 hour. Subsequently, the patient received 1.3 microgram of IV CCK over 30 minutes and additional imaging was performed. COMPARISON: Correlation is made with right upper quadrant ultrasound performed earlier in the day. FINDINGS: There is normal uptake and excretion of the radiopharmaceutical by the liver. Gallbladder activity is noted at 12 minutes. Common bile duct activity is seen at 36 minutes. Small bowel activity is noted at 38 minutes. After the administration of intravenous CCK, the estimated gallbladder ejection fraction is 33%, which is abnormally low (normal 35-80%). NM/NM hepatobiliary w pharm IMPRESSION: 1. No evidence of cystic duct obstruction or acute cholecystitis. 2. Abnormally low gallbladder ejection fraction, suggestive of biliary dyskinesia. Electronically signed by: Herber Cooper MD 12/17/2024 01:35 PM EDT
--- NOTE | ~2024-12-17 | US_ITS ---
EXAMINATION: US ABDOMEN LIMITED HISTORY: RUQ pain, abd CT scan, ? lou TECHNIQUE: Real-time grayscale ultrasound imaging of the gallbladder was performed and images were reviewed. COMPARISON: Correlation is made with a CT of the abdomen with contrast performed earlier in the day. FINDINGS: The gallbladder is distended. No calculi are identified. There is thickening of the gallbladder wall measuring up to 6 mm in thickness. There is a small amount of pericholecystic fluid. The technologist reports that the patient is focally tender over the gallbladder, compatible with a positive sonographic Harding sign. The common bile duct is normal in caliber measuring 4 mm in diameter. US/US abdomen limited IMPRESSION: Distended gallbladder with associated wall thickening, pericholecystic fluid, and a positive sonographic Harding sign. Although no calculi are identified. Findings are suspicious for acute cholecystitis. Electronically signed by: Herber Cooper MD 12/17/2024 09:16 AM EDT
--- NOTE | ~2024-12-17 | NM_ITS ---
CLINICAL HISTORY: rule out leak s p lap lou NM HIDA Scan Comparison: MR - MR MRCP - 12/20/24 08:41 EDT Radiopharmaceutical: 5 mCi mebrofenin Findings: Normal liver uptake, distribution, and excretion. The gallbladder is not visualized consistent with cholecystectomy. Central bile ducts appear at 14 minutes. Duodenum visualized at 16-18 minutes. There is no bile leak. IMPRESSION: No evidence of bile leak status post cholecystectomy. This document has been electronically signed by: Vito Mendoza MD on 12/20/2024 19:04:20
[2024-12-17 01:08] LABS: Hematocrit 31.3 % (37.0-47.0); Hemoglobin 10.8 g/dl (12.0-16.0); Imm Gran Abs Auto 0.03 X10*3/uL (0.00-0.03); Imm Gran Pct Auto 0.4 % (0.0-0.4); Lymphocytes Absolute Auto 5.1 X10*3/uL (1.2-4.9); MANUAL DIFF FLAG SCAN; Mean Corpuscular HGB Conc 34.5 g/dl (31.0-35.0); Mean Corpuscular Hemoglobin 28.1 pg (27.0-33.0); Mean Corpuscular Volume 81.5 fL (80.0-98.0); NRBC Abs Auto 0.000 X10*3/uL (0.0-0.012); NRBC Pct Auto 0.0 /100WBC (0.0-0.2); Platelet Count 222 X10*3/uL (160-400); Red Blood Count 3.84 X10*6/uL (4.20-5.50); SCAN SMEAR FLAG 1; White Blood Count 7.3 X10*3/uL (4.8-10.8)
[2024-12-17 01:11] LABS: UPreg QC Valid YES
[2024-12-17 01:25] LABS: Alanine Aminotransferase 71 U/L (0-31); Albumin Level 3.2 g/dL (3.5-5.0); Alkaline Phosphatase 554 U/L (39-117); Anion Gap 13 (12-20); Aspartate Amino Transferase 88 U/L (5-31); Blood Urea Nitrogen 10 mg/dL (9-16); Calcium 8.6 mg/dL (8.4-10.2); Carbon Dioxide 21 mmol/L (22-29); Chloride 108 mmol/L (96-108); Creatinine Clr Calc Pharmacy 108.5; Estimated Glomerular Filt Rate > 60; Lipase 51 U/L (8-78); Magnesium 2.0 mg/dL (1.6-2.6); Potassium 4.1 mmol/L (3.3-5.1); Sodium 138 mmol/L (135-145); Total Protein 6.9 g/dL (6.5-8.0)
[2024-12-17 01:34] LABS: Troponin-I High Sensitivity < 2.7 ng/L (<3.5-17.0)
--- NOTE | 2024-12-17 02:55 | ED_ITS ---
HPI - Chest Pain General Chief Complaint: Chest Pain Stated Complaint: CP w/ Dyspnea Time Seen by Provider: 12/17/24 02:42 Source: patient Mode of arrival: ambulatory Limitations: no limitations History of Present Illness ED Provider: Dillon MONTEIRO HPI narrative: The patient is a 29-year-old female presenting to the ED for evaluation of 2 days of epigastric abdominal pain which began after eating dinner Friday evening, patient reports symptoms eventually improved however they returned again yesterday when eating, specifically when eating pork chops for dinner once again. The patient reports pain is a pressure that radiates into her chest and prevents her from taking a deep breath. The patient denies associated fever/chills, cough, shortness of breath, vomiting, diarrhea, dysuria, hematuria, recent sick contacts, or recent trauma. The patient denies any surgical abdominal history. Patient reports last menstrual period was the beginning of November, as expected. Related Data Previous Rx's ?Medication ?Instructions ?Recorded loperamide 2 mg tablet 2 mg PO Q4H PRN loose stool #10 12/21/20 tabs ondansetron HCl 4 mg tablet 4 mg PO Q6H PRN nausea and 12/21/20 (Zofran) vomiting #10 tabs cyclobenzaprine 10 mg tablet 10 mg PO TID PRN muscle s pasm #14 02/23/21 tabs ibuprofen 600 mg tablet 600 mg PO Q6H PRN pain #30 t abs 02/23/21 ondansetron 4 mg disintegrating 4 mg PO Q8H PRN nausea and 02/23/21 tablet vomiting #20 tabs amoxicillin 500 mg capsule 500 mg PO TID 7 days #21 ca ps 01/30/22 Allergies Allergy/AdvReac Type Severity Reaction Status Date / Time No Known Allergies (No Known Allergy Verified 12/17/24 00:51 Allergies*) Review of Systems 2 Review of Systems: Yes all other systems are reviewed and are negative PMFSH Past Medical History Medical History Asthma Ovarian cyst Uterine fibroid Social History Social History (Updated 02/23/21 @ 07:44 by Michelle Perez DO) Unable to assess alcohol history related to: Unknown Alcohol intake: unknown Patient Tobacco Use Status: Never used Tobacco Smoked in Last 30 Days: No Use of substances other than those prescribed or required for medical reasons: No Advance Directives: No Advance Directives Information Provided: Yes Physical Exam 2 Vital Signs: Vital Signs: Last Vital Signs Temp 98.1 F 12/17/24 14:10 Pulse 81 12/17/24 14:10 Resp 18 12/17/24 14:10 BP 112/72 12/17/24 14:10 Pulse Ox 97 12/17/24 14:10 O2 Del Method Room Air 12/17/24 14:10 BMI result Body Mass Index 28.1 CONSTITUTIONAL: The patient appears non-toxic, well nourished and in no acute distress. Vital signs as documented. HEAD: Atraumatic, normocephalic. EYES: EOMs grossly intact, pupils equal, conjunctiva clear, no exudate. ENT: Nares patent, no discharge. Airway patent, no audible stridor, visible mucosa is pink and moist without noted lesions. NECK: Trachea is midline, no obvious masses or gross abnormalities. CHEST: Symmetric movement, normal appearance. LUNGS: LS present and CTAB, no w/r/r. Non-labored work of breathing. CARDIAC: Regular Rhythm, S1/S2 appreciated, no murmurs, rubs or gallops. ABDOMEN: Abdomen soft x4 quadrants, there is marked tenderness to palpation of the right lower quadrant and right upper quadrant, negative rebound, no palpable masses or organomegaly. : Deferred. EXTREMITIES: Normal tone, moves all extremities spontaneously without reported pain. No obvious acute injury or deformity noted. NEURO: Alert and oriented x3, CN II-XII appear grossly intact. Cerebellar Functioning grossly intact. No obvious sensory or motor deficits. Speech clear and appropriate. PSYCH: normal affect, appropriate eye contact, fluid speech, with appropriate response to questioning. No reported suicidality or homicidality. SKIN: Warm, dry, color appropriate, normal turgor. No rashes noted. Course Course Course Narrative: Dr. Brock: I assumed care of this patient at change of shift after a CT of the abdomen and pelvis showed pericholecystic fluid. On exam the patient was quite tender in the right upper quadrant. We obtained an ultrasound of her gallbladder that shows pericholecystic wall thickening, pericholecystic fluid and a sonographic Harding's sign. However there are no gallstones. The patient has a normal white count with no left shift. She has a very elevated alk phos of 554. Bilirubin is normal. Case was discussed with Dr. Thao of General surgery who has requested a HIDA scan as this seems to be a somewhat unusual case. The patient will be signed out to the oncoming emergency physician at change of shift pending the results of a HIDA scan. Reevaluation(s) Reevaluation #1: I, Dr. Huitron have take over the care of this patient, I reviewed pertinent blood work and imaging, re-evaluated the patient when appropriate. HIDA scan Time: 10:11 Reevaluation #2: 1. No evidence of cystic duct obstruction or acute cholecystitis. 2. Abnormally low gallbladder ejection fraction, suggestive of biliary dyskinesia. contacted Surgery, discussed with the patient, patient will likely be admitted 14:44 Patient re-examined, continues to have abdominal tenderness, has had Toradol, we will add narcotics for her pain he is reporting significant amount of pain, spoke with the surgeon she will be admitted Time: 13:50 Medications Administered Discontinued Medications Generic Name Dose Route Start Last Admin Trade Name Moeq PRN Reason Stop Dose Admin Acetaminophen 975 mg 12/17/24 02:24 12/17/24 02:33 Acetaminophen 325 Mg Tablet PO 12/17/24 02:25 975 mg ONCE ONE Administration Sodium Chloride 1,000 mls @ 999 mls/hr 12/17/24 03:15 12/17/24 05:39 Ns IV 12/17/24 04:15 Infused .Q1H1M JANET Infusion Iohexol 85 ml 12/17/24 03:12 12/17/24 03:13 Iohexol 350 Mg/Ml 100 Ml Infus..Btl IV 12/17/24 03:13 85 ml ONCE ONE Administration Ketorolac Tromethamine 15 mg 12/17/24 05:24 12/17/24 05:37 Ketorolac Tromethamine 15 Mg/Ml Vial IVPUSH 12/17/24 05:25 15 mg ONCE ONE Administration Ketorolac Tromethamine 15 mg 12/17/24 10:50 12/17/24 10:56 Ketorolac Tromethamine 15 Mg/Ml Vial IVPUSH 12/17/24 10:51 15 mg ONCE ONE Administration Morphine Sulfate 4 mg 12/17/24 03:15 12/17/24 03:37 Morphine Sulfate 4 Mg/Ml Cartridge IVPUSH 12/17/24 03:16 4 mg ONCE ONE Administration Protocol Morphine Sulfate 4 mg 12/17/24 14:31 12/17/24 14:37 Morphine Sulfate 4 Mg/Ml Cartridge IVPUSH 12/17/24 14:32 4 mg ONCE ONE Administration Protocol Ondansetron HCl 4 mg 12/17/24 03:15 12/17/24 03:37 Ondansetron Hcl 4 Mg/2 Ml Vial IVPUSH 12/17/24 03:16 4 mg ONCE ONE Administration Medical Decision Making Medical Decision Making MDM Narrative: 3:10 AM 12/17/2024 (Kenton MONTEIRO): The patient is a 29-year-old female presenting to the ED for evaluation of 2 days of epigastric abdominal pain described as a pressure which radiates into her chest and prevents her from taking a deep breath. The patient reports symptoms began 2 nights ago after eating pork chops, eventually improved, however once again returned postprandially yesterday evening. The patient denies associated fever/chills, vomiting, diarrhea, urinary symptoms, or recent trauma. The patient has no surgical abdominal history. In the ED the patient appears uncomfortable, abdominal exam is markedly tender in the right lower and right upper quadrants as well as the epigastrium. Negative rebound. The patient's laboratory evaluation is largely reassuring, no leukocytosis, significant anemia, KENY, or electrolyte insufficiency. The patient's LFTs however show mildly elevated AST and ALT with markedly elevated alkaline phosphatase. Lipase is normal. Patient's EKG is nonischemic, initial troponin is negative. Given the patient's right sided abdominal tenderness with LFT abnormalities and postprandial onset of symptoms, we will obtain CT abdomen and pelvis to evaluate for cholecystic versus appendiceal pathology. If CT is at all concerning for cholecystic pathology we will hold patient for abdominal ultrasound in the morning. We will treat pain with morphine, and provide IV fluid hydration. 5:06 AM 12/17/2024 (Kenton MONTEIRO): Patient's CT has resulted and shows nonspecific gallbladder wall thickening which may be related to generalized 3rd spacing of fluid or acute cholecystitis. Gallbladder ultrasound or HIDA scan is recommended for further evaluation. There was also mild periportal edema which may be related to recent volume administration however acute hepatitis may produce a similar appearance. The patient's case and CT results have been discussed with Dr. Brock who advises he will reassess the patient, consider ultrasound as indicated, and discussed case with surgery as indicated. Differential Diagnosis ACS, cholecystitis, cholangitis, choledocholithiasis, appendicitis, gastritis Admission/Observation Consideration of admission/observation: Escalation of care including admission/observation considered Lab Data MDM Lab Attestation statement: I reviewed the patient's lab results. 12/17/24 00:56 12/17/24 00:59 Labs: Lab Results 12/17/24 12/17/24 12/17/24 Range/Units 00:56 00:59 03:08 WBC 7.3 (4.8-10.8) X10*3/uL RBC 3.84 L (4.20-5.50) X10*6/uL Hgb 10.8 L (12.0-16.0) g/dl Hct 31.3 L (37.0-47.0) % MCV 81.5 (80.0-98.0) fL MCH 28.1 (27.0-33.0) pg MCHC 34.5 (31.0-35.0) g/dl RDW 14.6 (11.0-16.0) % Plt Count 222 (160-400) X10*3/uL MPV 9.6 (9.4-12.3) fL Immature Gran % (Auto) 0.4 (0.0-0.4) % Neut % (Auto) 25.0 L (45-73) % Lymph % (Auto) 69.1 H (20-40) % Barrow % (Auto) 4.0 (2-11) % Eos % (Auto) 0.8 (0-4) % Baso % (Auto) 0.7 (0-2) % Lymph # (Auto) 5.1 H (1.2-4.9) X10*3/uL Barrow # (Auto) 0.3 (0.1-1.2) X10*3/uL Eos # (Auto) 0.1 (0.0-0.4) X10*3/uL Baso # (Auto) 0.1 (0.0-0.2) X10*3/uL Abs Immat Gran (auto) 0.03 (0.00-0.03) X10*3/uL Absolute Neuts (auto) 1.8 L (2.0-8.3) x10*3/uL Absolute Nucleated RBC 0.000 (0.0-0.012) X10*3/uL Nucleated RBC % (auto) 0.0 (0.0-0.2) /100WBC Smear Tech's Comments VERIFIED Sodium 138 (135-145) mmol/L Potassium 4.1 (3.3-5.1) mmol/L Chloride 108 (96-108) mmol/L Carbon Dioxide 21 L (22-29) mmol/L Anion Gap 13 (12-20) BUN 10 (9-16) mg/dL Creatinine 0.66 (0.5-1.4) mg/dL Estim Creat Clear Calc 108.5 Estimated GFR > 60 Random Glucose 104 (60-115) mg/dL Calcium 8.6 (8.4-10.2) mg/dL Magnesium 2.0 (1.6-2.6) mg/dL Total Bilirubin 0.5 (0.0-1.0) mg/dL AST 88 H (5-31) U/L ALT 71 H (0-31) U/L Alkaline Phosphatase 554 H (39-117) U/L Troponin I High Sens < 2.7 < 2.7 (<3.5-17.0) ng/L C-Reactive Protein 0.36 (< or = 0.50) mg/dL Total Protein 6.9 (6.5-8.0) g/dL Albumin 3.2 L (3.5-5.0) g/dL Lipase 51 (8-78) U/L Urine Test NEGATIVE (NEGATIVE) Radiology Impression Discussion of test interpretation with radiology: I have reviewed the radiologist's reading. Radiologist Impression: CT abdomen and pelvis with contrast Comparison: None provided. Findings: Minimal bilateral lower lobe subsegmental atelectasis. There is gallbladder wall thickening. No radiopaque gallstones visualized. The liver is enlarged. Trace perihepatic fluid present. Mild periportal edema present. The IVC appears distended. The spleen is enlarged. The pancreas and bilateral adrenal glands are within normal limits for appearance. No hydronephrosis. No bowel obstruction, pneumoperitoneum, or pneumatosis. Pelvic contents unremarkable. No bladder wall thickening. The bladder is underdistended. Normal appendix. No acute fracture visualized. IMPRESSION: 1. Nonspecific gallbladder wall thickening. This may be related to generalized 3rd spacing of fluid or acute cholecystitis. Clinical correlation is advised. May consider gallbladder ultrasound examination and/or nuclear medicine HIDA scan for further evaluation as clinically directed. 2. Mild periportal edema. This may be related to recent volume administration/fluid overload given the distended IVC. Acute hepatitis may produce a similar appearance. Clinical correlation is advised. 3. Hepatosplenomegaly. This document has been electronically signed by: Krunal Falcon MD on 12/17/2024 04:37:58 Prescription Management I considered prescription management with: Pain Medication Critical Care Time Critical Care Time Critical Care Time: Yes Total Critical Care Time: 32 Attestation: Time is exclusive of separately billable procedures. Time includes: direct patient care, patient reassessment, coordination of patient care, interpretation of data (laboratory data, pulse oximetry, arterial blood gases and chest xrays), review of patient's medical records, medical consultation and documentation of patient care. Procedures excluded from critical care time: central intravenous line placement and electrocardiography. Discharge Plan Discharge Clinical Impression: Biliary colic Prescriptions: No Action ondansetron HCl [Zofran] 4 mg tablet 4 mg PO Q6H PRN (Reason: nausea and vomiting) Qty: 10 0RF loperamide 2 mg tablet 2 mg PO Q4H PRN (Reason: loose stool) Qty: 10 0RF Rx Instructions: administer after each loose stool until symptoms controlled; do not exceed 8 mg per 24 hrs cyclobenzaprine 10 mg tablet 10 mg PO TID PRN (Reason: muscle spasm) Qty: 14 0RF ibuprofen 600 mg tablet 600 mg PO Q6H PRN (Reason: pain) Qty: 30 0RF ondansetron 4 mg tablet,disintegrating 4 mg PO Q8H PRN (Reason: nausea and vomiting) Qty: 20 0RF amoxicillin 500 mg capsule 500 mg PO TID 7 Days Qty: 21 0RF Print Language: Surinamese
[2024-12-17] MEDS: iohexoL 350 MG/ML 100 ML INFUS..BTL 85 ML IV (03:13)
[2024-12-17 03:48] LABS: Troponin-I High Sensitivity < 2.7 ng/L (<3.5-17.0)
--- NOTE | 2024-12-17 14:18 | PC.NURSE ---
GI at bedside at this time discussing plan
--- NOTE | 2024-12-17 14:55 | PHA.MEDREC ---
Pharmacy Consult ? Medication Reconciliation Pharmacy has completed the medication reconciliation. Patient states she is not taking any medications.
--- NOTE | 2024-12-17 15:17 | P.CONAN_ITS ---
[facility] Active Problems Active Problems: All Active Problems Biliary colic (Acute) COVID-19 (Acute) Past Medical History Medical History Asthma Ovarian cyst Uterine fibroid Family History Family history of problems with anesthesia: No Surgical History History of Problems with Anesthesia: No Social History Social History (Updated 02/23/21 @ 07:44 by Michelle Perez DO) Unable to assess alcohol history related to: Unknown Alcohol intake: unknown Patient Tobacco Use Status: Current someday Tobacco user Smoked in Last 30 Days: No Use of substances other than those prescribed or required for medical reasons: No Have you been hit, kicked, punched, or otherwise hurt by someone within the past year? If so, by whom?: No Advance Directives: No Advance Directives Information Provided: Yes Patient : No Meds Allergies Allergy/AdvReac Type Severity Reaction Status Date / Time No Known Allergies (No Known Allergy Verified 12/17/24 00:51 Allergies*) Home Medications ?Medication ?Instructions ?Recorded ?Confirmed ?Last Taken ?Type No Known Home Meds 12/17/24 12/17/24 Un known History Exam Height,Weight and Vital Signs: Height 5 ft 1 in Weight 67.4 kg Last Vital Signs Temp 98.3 F 12/17/24 15:00 Pulse 84 12/17/24 15:00 Resp 18 12/17/24 15:00 BP 106/69 12/17/24 15:00 Pulse Ox 97 12/17/24 15:00 O2 Del Method Room Air 12/17/24 15:00 Pertinent Lab Results Pertinent Lab Results: Laboratory Tests 12/17/24 12/17/24 12/17/24 00:56 00:59 03:08 WBC 7.3 RBC 3.84 L Hgb 10.8 L Hct 31.3 L MCV 81.5 MCH 28.1 MCHC 34.5 RDW 14.6 Plt Count 222 MPV 9.6 Immature Gran % (Auto) 0.4 Neut % (Auto) 25.0 L Lymph % (Auto) 69.1 H Bryan % (Auto) 4.0 Eos % (Auto) 0.8 Baso % (Auto) 0.7 Lymph # (Auto) 5.1 H Bryan # (Auto) 0.3 Eos # (Auto) 0.1 Baso # (Auto) 0.1 Abs Immat Gran (auto) 0.03 Absolute Neuts (auto) 1.8 L Absolute Nucleated RBC 0.000 Nucleated RBC % (auto) 0.0 Smear Tech's Comments VERIFIED Sodium 138 Potassium 4.1 Chloride 108 Carbon Dioxide 21 L Anion Gap 13 BUN 10 Creatinine 0.66 Estim Creat Clear Calc 108.5 Estimated GFR > 60 Random Glucose 104 Calcium 8.6 Magnesium 2.0 Total Bilirubin 0.5 AST 88 H ALT 71 H Alkaline Phosphatase 554 H Troponin I High Sens < 2.7 < 2.7 C-Reactive Protein 0.36 Total Protein 6.9 Albumin 3.2 L Lipase 51 Urine Test NEGATIVE Airway Mallampati Class: II ( ouple chipped teeth top, missing a couple teeth in laterally, denies anything loose) TM Dist: >3cm Neck ROM: Full Heart: rrr Lungs: cta Assessment and Plan Assessment Anesthesia Assessment: Anesthesia Plan Discussed and Chart Reviewed Final Anesthetic Review Family History of Problems with Anesthesia: No History of Problems with Anesthesia: No NPO: Yes ASA Class: II and Emergency Final Preanesthetic Review: No Changes in Pt Med Stat, Meds/Allgs Chart Reviewed and Consent Obtained/Reviewed Patient Risk: Low Procedure Risk: Low Anesthetic Plan Anesthetic Plan: GA Disposition: Standard PACU
--- NOTE | 2024-12-17 15:35 | P.HPGS_ITS ---
History of Present Illness History of Present Illness Date of Service: 12/17/24 Chief complaint: CP w/ Dyspnea Narrative: Kailey Canales is a 29 year old female who over the last 4 days have had several episodes of abdominal pain in the right upper quadrant area with some nausea. This happened on Friday but improve by but then last night it happened again where she started having severe right upper quadrant pain radiating a little wounds towards the back and as a result she came to the emergency room. Here she was noted to have elevated LFTs with her alk-phos being moderately elevated and having some degree of hepatomegaly. She did have ultrasound which showed thickening of the gallbladder with some pain over the right upper quadrant. HIDA scan was recommended and this was carried out which revealed filling of the gallbladder but a low ejection fraction. As a result the patient is being admitted for biliary disease and will undergo laparoscopic cholecystectomy. She has never had pain like this before in his very concerned to never have it again. She denies any family history of any biliary disease. No other issues no chest pain shortness of breath respiratory issues no diarrhea constipation. Review of Systems Review of Systems: Yes all other systems are reviewed and are negative [facility] Past Medical History Medical History Asthma Ovarian cyst Uterine fibroid Social History Social History (Updated 02/23/21 @ 07:44 by Michelle Perez DO) Unable to assess alcohol history related to: Unknown Alcohol intake: unknown Patient Tobacco Use Status: Current someday Tobacco user Smoked in Last 30 Days: No Use of substances other than those prescribed or required for medical reasons: No Have you been hit, kicked, punched, or otherwise hurt by someone within the past year? If so, by whom?: No Advance Directives: No Advance Directives Information Provided: Yes Patient : No Meds Allergies Allergy/AdvReac Type Severity Reaction Status Date / Time No Known Allergies (No Known Allergy Verified 12/17/24 00:51 Allergies*) Active Medications: Current Medications Fentanyl (Fentanyl Citrate/Pf 100 Mcg/2 Ml Vial) 50 mcg IVPUSH Q5M PRN PRN Reason: Pain, Moderate to Severe (Pain Scale 4-10) Stop: 12/17/24 21:17 Naloxone HCl (Naloxone Hcl 0.4 Mg/Ml Vial) 0.04 mg IVPUSH Q5M PRN PRN Reason: Excessive sedation or RR < 8 Ondansetron HCl (Ondansetron Hcl 4 Mg/2 Ml Vial) 4 mg IVPUSH ONCE PRN PRN Reason: Nausea and Vomiting Stop: 12/17/24 21:17 Oxycodone HCl (Oxycodone Hcl Immed Release 5 Mg Tablet) 5 mg PO ONCE PRN PRN Reason: Pain, Moderate(Pain Scale 4-6) if no IV Access Stop: 12/17/24 21:17 Home Medications ?Medication ?Instructions ?Recorded ?Confirmed ?Last Taken ?Type No Known Home Meds 12/17/24 12/17/24 Un known History Physical Exam Vital Signs: Vital Signs: Last Vital Signs Temp 98.3 F 12/17/24 15:00 Pulse 84 12/17/24 15:00 Resp 18 12/17/24 15:00 BP 106/69 12/17/24 15:00 Pulse Ox 97 12/17/24 15:00 O2 Del Method Room Air 12/17/24 15:00 BMI result Body Mass Index 28.1 Const: General: cooperative, healthy appearing and acute distress moderate Orientation/consciousness: patient oriented x3 Resp: Effort & Inspection: normal respiratory effort Auscultation: clear to auscultation bilaterally Cardio: Rate: regular rate Rhythm: regular rhythm GI: Other: Abdomen is soft tender in the midabdomen tender the most in the right upper quadrant with guarding no rebound no peritoneal signs no masses noted Skin: Other: Nonicteric Neuro: General: patient oriented x3 Results Results Labs: Short CBC 12/17/24 Range/Units 00:56 WBC 7.3 (4.8-10.8) X10*3/uL Hgb 10.8 L (12.0-16.0) g/dl Hct 31.3 L (37.0-47.0) % Plt Count 222 (160-400) X10*3/uL BMP 12/17/24 00:59 Sodium 138 Potassium 4.1 Chloride 108 Carbon Dioxide 21 L BUN 10 Creatinine 0.66 Calcium 8.6 Liver Function 12/17/24 Range/Units 00:59 Total Bilirubin 0.5 (0.0-1.0) mg/dL AST 88 H (5-31) U/L ALT 71 H (0-31) U/L Alkaline Phosphatase 554 H (39-117) U/L Albumin 3.2 L (3.5-5.0) g/dL Urine 12/17/24 Range/Units 00:56 Urine Test NEGATIVE (NEGATIVE) Additional studies: Signed Patient: Kailey Canales MR#: [id number] : 1995 Acct:[id number] Age/Sex: 29 / F ADM Date: 12/17/24 Loc: HO.ED Attending Dr: Ordering Physician: Leandro Brock MD Date of Service: 12/17/24 Procedure(s): NM hepatobiliary w pharm Accession Number(s): [id number] cc: Leandro Brock MD; Physician,Unknown ~ EXAMINATION: NM HEPATOBILIARY WITH PHARM HISTORY: ? Cholecystitis. TECHNIQUE: An hepatobiliary scan was performed following the intravenous administration of 5 mCi technetium 99m-mebrofenin. Sequential images were obtained over 1 hour. Subsequently, the patient received 1.3 microgram of IV CCK over 30 minutes and additional imaging was performed. COMPARISON: Correlation is made with right upper quadrant ultrasound performed earlier in the day. FINDINGS: There is normal uptake and excretion of the radiopharmaceutical by the liver. Gallbladder activity is noted at 12 minutes. Common bile duct activity is seen at 36 minutes. Small bowel activity is noted at 38 minutes. After the administration of intravenous CCK, the estimated gallbladder ejection fraction is 33%, which is abnormally low (normal 35-80%). NM/NM hepatobiliary w pharm IMPRESSION: 1. No evidence of cystic duct obstruction or acute cholecystitis. 2. Abnormally low gallbladder ejection fraction, suggestive of biliary dyskinesia. Electronically signed by: Herber Cooper MD 12/17/2024 01:35 PM EDT Dictated By: Herber Cooper MD Signed By: <Electronically signed by Herber Cooper MD in OV> 12/17/24 1335 DD/ 0920 TD/TT: 12/17/24 1315 Spa Experience Coordinator: Signed Patient: Kailey Canales MR#: [id number] : 1995 Acct:[id number] Age/Sex: 29 / F ADM Date: 12/17/24 Loc: HO.ED Attending Dr: Ordering Physician: Leandro Brock MD Date of Service: 12/17/24 Procedure(s): US abdomen limited Accession Number(s): [id number] cc: Leandro Brock MD; Physician,Unknown ~ EXAMINATION: US ABDOMEN LIMITED HISTORY: RUQ pain, abd CT scan, ? lou TECHNIQUE: Real-time grayscale ultrasound imaging of the gallbladder was performed and images were reviewed. COMPARISON: Correlation is made with a CT of the abdomen with contrast performed earlier in the day. FINDINGS: The gallbladder is distended. No calculi are identified. There is thickening of the gallbladder wall measuring up to 6 mm in thickness. There is a small amount of pericholecystic fluid. The technologist reports that the patient is focally tender over the gallbladder, compatible with a positive sonographic Harding sign. The common bile duct is normal in caliber measuring 4 mm in diameter. US/US abdomen limited IMPRESSION: Distended gallbladder with associated wall thickening, pericholecystic fluid, and a positive sonographic Harding sign. Although no calculi are identified. Findings are suspicious for acute cholecystitis. Electronically signed by: Herber Cooper MD 12/17/2024 09:16 AM EDT Dictated By: Herber Cooper MD Signed By: <Electronically signed by Herber Cooper MD in OV> 12/17/24 0916 DD/ TD/TT: 12/17/24 0844 Spa Experience Coordinator: Assessment and Plan (1) Biliary colic: Status: Acute Plan 29-year-old female coming in with right upper quadrant abdominal pain nausea tenderness that is persistent. Imaging from ultrasounds CAT scan and HIDA scan showing issues with the gallbladder biliary colic dyskinesia possible cholecystitis. Plan to carry out laparoscopic cholecystectomy and see how she does afterwards. Risks and benefits were discussed with the patient including but not limited to bleeding infection possible open procedure possible bile duct injury other organ injury and despite this she was just to proceed. We will plan on carrying this out today. Quality Stroke Does the patient have a stroke diagnosis?: No VTE Prior VTE?: No VTE Risk Level:: Medical - low VTE Device Contraindication: N/A - Device Ordered VTE Drug Contraindication: Treatment Not Indicated Procedures Date of Service Date of Service: 12/17/24
--- NOTE | 2024-12-17 17:25 | P.OP_ITS ---
Operative Note Operative Note Date of Service: 12/17/24 Narrative: Preop diagnosis-- biliary colic biliary dyskinesia Postop diagnosis-same with acute cholecystitis Procedure--laparoscopic cholecystectomy Surgeon--Master Anesthesia--general endotracheal tube anesthesia Patient is a 29-year-old female who has had about 48-72 hour history of some abdominal pain coming and going in the right upper quadrant nausea. Came in here and LFTs were elevated and imaging consisting of CAT scan ultrasound and eventual HIDA scan revealed thickening of the gallbladder some pericholecystic fluid tenderness and low ejection fraction. As a result the patient comes in for laparoscopic cholecystectomy. Findings--acutely inflamed gallbladder with thickening and pericholecystic fluid Procedure-- Patient was brought to the operative room under Anesthesia guidance was intubated. She had compression stockings placed before induction received preoperative antibiotics. Her abdomen was prepped and draped in standard surgical fashion. An infraumbilical incision was created after numbing up the area with a 0.25% Marcaine with epinephrine. Dissection was carried down to the anterior abdominal wall fascia which was grasped with Meghan's and transected. 0 Vicryl pursestring suture was used on the anterior abdominal wall fascia and Stafford trocar introduced. Pneumoperitoneum was established to 15 mmHg pressure. Three 5 mm ports were then placed under direct visualization using local 1 in the epigastric area and 2 in the right upper quadrant area. The gallbladder was identified in the right upper quadrant with multiple adhesions. It was retracted partially in the adhesions taken down with some cautery. Eventually we were then able to retract the gallbladder superiorly and laterally. Maryneal of Calot area was dissected out with a Calot lymph node being very enlarged and inflamed. The cystic duct and cystic artery were dissected out and the surrounding tissue such that they were the only 2 structures entering into the gallbladder. Now with the critical view the cystic artery was clipped to down went up and transected in the cystic duct was clipped 3 down and 1 up and transected. Using the hook cautery the gallbladder was removed from the liver base and the liver base was cauterized to stop some ongoing oozing. The gallbladder was removed from the infraumbilical port site and then pneumoperitoneum reestablished. Little more cautery was carried out on the charo er base. Suctioned and irrigation was carried out. The area examined no other concerns were realized. The cystic duct and artery clips looked intact. The ports were then removed under direct visualization in the infraumbilical pursestring suture approximated. A little more local was used here and then 4-0 Monocryl in an interrupted subcuticular fashion was used to approximate the skin edges. At the end of the case all sponge instrument needle counts were correct. Estimated blood loss was about 7 cc. Specimens sent was the gallbladder. The patient was extubated returned stable to recovery room
[2024-12-17] MEDS: 0.9 % Sodium Chloride Flush 3 ML SYRINGE IVFLUSH (20:17)
[2024-12-18] VITALS (7 sets, daily range): BP systolic 101–124; BP diastolic 58–73; PULSE 67–89; RESP 18–20; TEMP 36.2–36.5; O2SAT 94–97
[2024-12-18] MEDS: 0.9 % Sodium Chloride Flush 3 ML SYRINGE IVFLUSH ×3 (08:19→20:30)
--- NOTE | 2024-12-18 12:09 | HO.POSTANES ---
Post Anesthesia Evaluation Post Anesthesia Evaluation Date of Service: 12/18/24 Vital Signs: Vital Signs Temp Pulse Resp BP Pulse Ox O2 Del Method 12/18/24 10:00 73 18 101/63 96 Room Air 12/18/24 07:54 97.3 F 87 20 119/73 97 Room Air 12/18/24 05:59 97.6 F 89 18 116/67 94 Room Air 12/18/24 03:19 97.3 F 83 18 124/58 L 95 Room Air 12/18/24 03:05 97.3 F 87 18 124/58 L 96 Room Air Anesthesia: General Endotracheal-GETA Mental Status: Awake Pain Control: Satisfactory Nausea/Vomiting: None Hydration: Adequate Anesthesia-Related Issues: No Anes. Related Issues
--- NOTE | 2024-12-18 13:05 | PC.NURSE ---
Whole body rash: pt stated she noticed she has a whole body rash - first noticed it in the ED, looks like hives, not itchy this AM but now is, Pt received morphine this AM 8:15 and now is noticing the spots are itching and becoming more pronounced. MD aware. Will continue to monitor.
[2024-12-18] MEDS: oxyCODONE HCl Immed Release 5 MG TABLET 10 MG PO ×2 (14:17→23:08)
--- NOTE | 2024-12-18 14:52 | PM.PNGS ---
Subjective Subjective Date of Service: 12/18/24 Interval history: Patient is complaining of abdominal pain still feeling more pressure maybe from the gas. She is feeling a little nauseated still and has not been able to eat too much as yet. She has a rash in his complaining of itchiness. Physical Exam Vital Signs: Vital Signs: Last Vital Signs Temp 97.3 F 12/18/24 07:54 Pulse 73 12/18/24 10:00 Resp 18 12/18/24 10:00 BP 101/63 12/18/24 10:00 Pulse Ox 96 12/18/24 10:00 O2 Del Method Room Air 12/18/24 10:00 BMI result Body Mass Index 27.5 Const: General: cooperative and acute distress mild GI: Other: Abdomen is soft tender around the incisions Skin: Other: Patient has small light pink rash throughout her trunk and some of her upper extremities Psych: Other: Patient is anxious and little teary Objective Data Active Medications Acetaminophen (Acetaminophen 325 Mg Tablet) 650 mg PO Q6H PRN PRN Reason: Pain, Mild 1-3,fever,headache Famotidine (Famotidine/Pf 20 Mg/2 Ml Vial) 20 mg IVPUSH BID JANET Ketorolac Tromethamine (Ketorolac Tromethamine 15 Mg/Ml Vial) 15 mg IVPUSH Q6H [facility] Last Admin: 12/18/24 10:03 Dose: 15 mg Documented By: FRANCISCO Magnesium Hydroxide (Milk Of Magnesia 30 Ml Oral.Susp) 30 ml PO DAILY PRN PRN Reason: Constipation Melatonin (Melatonin 3 Mg Tablet) 6 mg PO BEDTIME PRN PRN Reason: Insomnia Morphine Sulfate (Morphine Sulfate 4 Mg/Ml Cartridge) 3 mg IVPUSH Q3H PRN; Protocol PRN Reason: Pain, Severe (Pain Scale 7-10) Last Admin: 12/18/24 08:15 Dose: 3 mg Documented By: FRANCISCO Naloxone HCl (Naloxone Hcl 0.4 Mg/Ml Vial) 0.04 mg IVPUSH Q5M PRN PRN Reason: Excessive sedation or RR < 8 Ondansetron HCl (Ondansetron Hcl 4 Mg/2 Ml Vial) 4 mg IVPUSH Q6H PRN PRN Reason: Nausea and Vomiting Last Admin: 12/18/24 12:59 Dose: 4 mg Documented By: FRANCISCO Oxycodone HCl (Oxycodone Hcl Immed Release 5 Mg Tablet) 5 mg PO Q4H PRN PRN Reason: Pain, Mild (Pain Scale 1-3) Oxycodone HCl (Oxycodone Hcl Immed Release 5 Mg Tablet) 10 mg PO Q4H PRN PRN Reason: Pain, Moderate(Pain Scale 4-6) Last Admin: 12/18/24 14:17 Dose: 10 mg Documented By: FRANCISCO Sodium Chloride (0.9 % Sodium Chloride Flush 3 Ml Syringe) 3 ml IVFLUSH [facility] Last Admin: 12/18/24 08:19 Dose: 3 ml Documented By: FRANCISCO Labs 12/17/24 00:56 12/17/24 00:59 Procedures Date of Service Date of Service: 12/18/24 Progress Note: A&P Assessment and plan (1) Biliary colic: Status: Acute Assessment and Plan: Patient is status post laparoscopic cholecystectomy for biliary colic postoperatively going slow feeling more pressure symptoms probably is from the gas and some nausea. Plan to have her ambulate little bit more little Benadryl for the rash that she has and re-evaluate. We will keep her overnight and see how she does for tomorrow. Time Spent With Patient Time: Total time managing care of this patient today ____ minutes. Quality Stroke Does the patient have a stroke diagnosis?: No VTE Prior VTE?: No VTE Risk Level:: Medical - low VTE Device Contraindication: N/A - Device Ordered VTE Drug Contraindication: Treatment Not Indicated
--- NOTE | 2024-12-18 16:41 | MHC.CM.PN ---
PT REPORTS SHE LIVES WITH HER DAUGHTERS AND IS INDEPENDENT WITH CARE SHE HAS NO DME AND NO SERVICES SHE HAS NOT SEEN A PCP IN A FEW YEARS - [facility] PROVIDED DECLINES A HCP DCP: HOME VIA PRIVATE TRANSPORT
[2024-12-19 04:00] VITALS: BP 97/60; PULSE 69; RESP 18; TEMP 36.2; O2SAT 95
[2024-12-19 07:51] VITALS: BP 103/56; PULSE 77; RESP 16; TEMP 36.1; O2SAT 96
[2024-12-19] MEDS: 0.9 % Sodium Chloride Flush 3 ML SYRINGE IVFLUSH ×3 (08:52→20:58)
[2024-12-19] MEDS: oxyCODONE HCl Immed Release 5 MG TABLET 10 MG PO ×2 (09:01→18:38)
[2024-12-19 16:00] VITALS: BP 100/62; PULSE 72; RESP 18; TEMP 36.6; O2SAT 97
[2024-12-19 18:03] LABS: Hematocrit 30.0 % (37.0-47.0); Hemoglobin 10.2 g/dl (12.0-16.0); Imm Gran Abs Auto 0.03 X10*3/uL (0.00-0.03); Imm Gran Pct Auto 0.5 % (0.0-0.4); Lymphocytes Absolute Auto 4.1 X10*3/uL (1.2-4.9); MANUAL DIFF FLAG SCAN; Mean Corpuscular HGB Conc 34.0 g/dl (31.0-35.0); Mean Corpuscular Hemoglobin 27.9 pg (27.0-33.0); Mean Corpuscular Volume 82.0 fL (80.0-98.0); NRBC Abs Auto 0.000 X10*3/uL (0.0-0.012); NRBC Pct Auto 0.0 /100WBC (0.0-0.2); Platelet Count 229 X10*3/uL (160-400); Red Blood Count 3.66 X10*6/uL (4.20-5.50); SCAN SMEAR FLAG 1; White Blood Count 6.1 X10*3/uL (4.8-10.8)
[2024-12-19 18:20] LABS: Alanine Aminotransferase 69 U/L (0-31); Albumin Level 2.9 g/dL (3.5-5.0); Alkaline Phosphatase 458 U/L (39-117); Anion Gap 9 (12-20); Aspartate Amino Transferase 83 U/L (5-31); Blood Urea Nitrogen 11 mg/dL (9-16); Calcium 7.5 mg/dL (8.4-10.2); Carbon Dioxide 26 mmol/L (22-29); Chloride 107 mmol/L (96-108); Creatinine Clr Calc Pharmacy 99.8; Estimated Glomerular Filt Rate > 60; Potassium 4.0 mmol/L (3.3-5.1); Sodium 138 mmol/L (135-145); Total Protein 6.2 g/dL (6.5-8.0)
[2024-12-19 19:55] VITALS: BP 107/63; PULSE 75; RESP 18; TEMP 36.1; O2SAT 96
[2024-12-19] MEDS: Lactated Ringers 1,000 ML 100 ML IVCONT (20:54)
--- NOTE | 2024-12-19 21:25 | PM.PNGS ---
Subjective Subjective Date of Service: 12/19/24 Interval history: Today patient is still complaining of nausea and abdominal pain although feeling better than yesterday. She has been walking around did have a little something to eat but then immediately started feeling nauseated again. No fevers or chills. She has gone to the bathroom and had several bowel movements. It seems like it is a little more looser. Physical Exam Vital Signs: Vital Signs: Last Vital Signs Temp 96.9 F 12/19/24 19:55 Pulse 75 12/19/24 19:55 Resp 18 12/19/24 19:55 BP 107/63 12/19/24 19:55 Pulse Ox 96 12/19/24 19:55 O2 Del Method Room Air 12/19/24 19:55 BMI result Body Mass Index 27.5 Const: General: cooperative, healthy appearing, comfortable and no acute distress Eyes: Other: Nonicteric GI: Other: Abdomen is soft nondistended tender at the umbilicus and right upper quadrant but no guarding rebound or peritoneal signs incision sites look good Objective Data Active Medications Acetaminophen (Acetaminophen 325 Mg Tablet) 650 mg PO Q6H PRN PRN Reason: Pain, Mild 1-3,fever,headache Last Admin: 12/19/24 18:39 Dose: 650 mg Documented By: BRE Diphenhydramine HCl (Diphenhydramine Hcl 50 Mg/Ml Vial) 25 mg IVPUSH Q6H PRN PRN Reason: Rash Last Admin: 12/18/24 21:58 Dose: 25 mg Documented By: MARLENI Famotidine (Famotidine/Pf 20 Mg/2 Ml Vial) 20 mg IVPUSH BID [facility] Last Admin: 12/19/24 20:53 Dose: 20 mg Documented By: TAWANDA Lactated Ringer's (Lr) 1,000 mls @ 100 mls/hr IVCONT .Q10H [facility] Last Admin: 12/19/24 20:54 Dose: 100 mls/hr Documented By: TAWANDA Ketorolac Tromethamine (Ketorolac Tromethamine 15 Mg/Ml Vial) 15 mg IVPUSH Q6H [facility] Last Admin: 12/19/24 21:00 Dose: 15 mg Documented By: TAWANDA Magnesium Hydroxide (Milk Of Magnesia 30 Ml Oral.Susp) 30 ml PO DAILY PRN PRN Reason: Constipation Melatonin (Melatonin 3 Mg Tablet) 6 mg PO BEDTIME PRN PRN Reason: Insomnia Last Admin: 12/19/24 20:54 Dose: 6 mg Documented By: TAWANDA Melatonin (Melatonin 3 Mg Tablet) 6 mg PO BEDTIME PRN PRN Reason: Sleep Morphine Sulfate (Morphine Sulfate 4 Mg/Ml Cartridge) 3 mg IVPUSH Q3H PRN; Protocol PRN Reason: Pain, Severe (Pain Scale 7-10) Last Admin: 12/19/24 20:54 Dose: 3 mg Documented By: TAWANDA Naloxone HCl (Naloxone Hcl 0.4 Mg/Ml Vial) 0.04 mg IVPUSH Q5M PRN PRN Reason: Excessive sedation or RR < 8 Ondansetron HCl (Ondansetron Hcl 4 Mg/2 Ml Vial) 4 mg IVPUSH Q6H PRN PRN Reason: Nausea and Vomiting Last Admin: 12/19/24 15:14 Dose: 4 mg Documented By: FRANCISCO Oxycodone HCl (Oxycodone Hcl Immed Release 5 Mg Tablet) 5 mg PO Q4H PRN PRN Reason: Pain, Mild (Pain Scale 1-3) Oxycodone HCl (Oxycodone Hcl Immed Release 5 Mg Tablet) 10 mg PO Q4H PRN PRN Reason: Pain, Moderate(Pain Scale 4-6) Last Admin: 12/19/24 18:38 Dose: 10 mg Documented By: BRE Sodium Chloride (0.9 % Sodium Chloride Flush 3 Ml Syringe) 3 ml IVFLUSH [facility] Last Admin: 12/19/24 20:58 Dose: 3 ml Documented By: TAWANDA Labs 12/19/24 17:24 12/19/24 17:24 Labs: Laboratory Results - last 24 hr 12/19/24 17:24 MCV 82.0 MCH 27.9 MCHC 34.0 RDW 14.7 Plt Count 229 MPV 9.1 L Immature Gran % (Auto) 0.5 H Neut % (Auto) 24.3 L Lymph % (Auto) 67.9 H [place] % (Auto) 5.6 Eos % (Auto) 0.7 Baso % (Auto) 1.0 Lymph # (Auto) 4.1 [place] # (Auto) 0.3 Eos # (Auto) 0.0 Baso # (Auto) 0.1 Abs Immat Gran (auto) 0.03 Absolute Neuts (auto) 1.5 L Absolute Nucleated RBC 0.000 Nucleated RBC % (auto) 0.0 Smear Tech's Comments VERIFIED Anion Gap 9 L Estim Creat Clear Calc 99.8 Estimated GFR > 60 Random Glucose 86 Calcium 7.5 L D Total Bilirubin 0.5 AST 83 H ALT 69 H Alkaline Phosphatase 458 H Total Protein 6.2 L Albumin 2.9 L Procedures Date of Service Date of Service: 12/19/24 Progress Note: A&P Assessment and plan (1) Elevated LFTs: Status: Acute Plan 29-year-old female presented with biliary colic/dyskinesia and underwent laparoscopic cholecystectomy 2 days ago postoperative day 1 yesterday was still feeling nauseated but looks relatively okay. Today with pain and nausea still progressing LFTs were carried out which are very similar to preop LFTs which have a moderately elevated alk-phos but bilirubin is normal. Plan to continue patient with LR for hydration sips of liquids for p.o.. Discussed the case with Dr. Mccain from Gastroenterology and we will plan on getting a stat MRCP tomorrow morning. We will also repeat labs in GTT P. This was all extensively discussed with the patient her mom and she is feeling better this afternoon and she agrees with the plan Time Spent With Patient Time: Total time managing care of this patient today ____ minutes. Quality Stroke Does the patient have a stroke diagnosis?: No VTE Prior VTE?: No VTE Risk Level:: Medical - low VTE Device Contraindication: N/A - Device Ordered VTE Drug Contraindication: Treatment Not Indicated
[2024-12-20] MEDS: oxyCODONE HCl Immed Release 5 MG TABLET 10 MG PO ×3 (01:21→21:49)
[2024-12-20 03:28] VITALS: BP 112/67; PULSE 69; RESP 18; TEMP 36.3; O2SAT 96
[2024-12-20] MEDS: Lactated Ringers 1,000 ML 100 ML IVCONT ×2 (05:37→16:54)
[2024-12-20 07:07] LABS: Gamma Glutamyl Transpeptidase 169 U/L (7-33); Lipase 29 U/L (8-78)
[2024-12-20 07:52] LABS: Alanine Aminotransferase 60 U/L (0-31); Albumin Level 2.7 g/dL (3.5-5.0); Alkaline Phosphatase 404 U/L (39-117); Anion Gap 8 (12-20); Aspartate Amino Transferase 72 U/L (5-31); Blood Urea Nitrogen 7 mg/dL (9-16); Calcium 7.4 mg/dL (8.4-10.2); Carbon Dioxide 23 mmol/L (22-29); Chloride 110 mmol/L (96-108); Creatinine Clr Calc Pharmacy 118.1; Estimated Glomerular Filt Rate > 60; Potassium 4.0 mmol/L (3.3-5.1); Sodium 137 mmol/L (135-145); Total Protein 5.6 g/dL (6.5-8.0)
[2024-12-20 08:00] VITALS: BP 119/76; PULSE 81; RESP 18; TEMP 37; O2SAT 97
--- NOTE | 2024-12-20 12:39 | PC.NURSE ---
Pt NPO pending hida scan. Nuclear medicine contacted and will be in approximately 1430 today. Pt medicated earlier in shift with morphine 3mg IV per MAR for c/o 01/28 pain. Good effect
[2024-12-20 16:00] VITALS: BP 111/71; PULSE 85; RESP 18; TEMP 36.3; O2SAT 96
--- NOTE | 2024-12-20 17:12 | PM.EVENT ---
Event Note Date of Service: 12/20/24 Event Note: GI Consult-Full note dictated Imp: 29 yo female 3 days s/p lap CCY for acalculous cholecystitis with some nausea, abdominal discomfort, and persistent elevated LFT's that were present preop. Her w/u including today's MRCP and HIDA does not show any biliary disease such as a retained CBD stone, bile duct injury, or bile leak. Her LFT's and overall symptomatology are actually improving. I suspect the preop elevated LFT's were as the result of her significant cholecystitis and they are now improving after surgery. Rec: At this point, given all of her negative imaging, I would advance her diet and observe things. If things remain stable she could be discharged and have an outpatient liver profile in 1 to 2 weeks to make sure things are normalizing. I don't think she needs an ERCP at this time. D/W patient. Please advise me if I can be of further assistance. Thanks. Time Spent With Patient Time: Total time managing care of this patient today ____ minutes.
--- NOTE | 2024-12-20 18:52 | PC.NURSE ---
Pt c/o itching to both arms, back and abdomen. Fine pink rash noted. IV benadryl given per JUN. Dr Hill notified of Dr Mccain note regarding diet, ok for pt to eat. Pt and oncoming RN notified
[2024-12-20 19:05] VITALS: BP 120/77; PULSE 77; RESP 18; TEMP 36.4; O2SAT 96
[2024-12-20] MEDS: 0.9 % Sodium Chloride Flush 3 ML SYRINGE IVFLUSH (20:26)
--- NOTE | 2024-12-20 22:30 | CONS_ITS ---
DATE OF SERVICE: 12/20/2024 REASON FOR CONSULTATION: Nausea, abdominal discomfort, and elevated LFTs. HISTORY OF PRESENT ILLNESS: The patient is a 29-year-old healthy female, who was in her usual state of health up until about 2 to 3 days before admission when she began having progressive right upper quadrant discomfort. She reports that she may have had similar issues in the past, but those were quite brief and not particularly severe. However, this most recent episode became quite uncomfortable prompting her ER visit. Her workup revealed what appeared to be acalculous cholecystitis based on her imaging studies including a HIDA scan with a low normal ejection fraction. The imaging did not demonstrate any gallstones, but did show evidence of a thickened gallbladder wall with some fluid. Based on her pain localized to the right upper quadrant and her imaging studies, she went to the OR for what appeared to be an uneventful laparoscopic cholecystectomy. Preoperatively, she did have somewhat elevated LFTs with an AST of 88, ALT of 71, and alkaline phosphatase of 554 with a normal total bilirubin. LFTs in 2020 were completely normal including an alkaline phosphatase of only 52. Her preop imaging studies including the ultrasound did not show any sign of biliary disease and the common bile duct was only 4 mm on the preoperative ultrasound. Her preoperative HIDA scan also showed prompt emptying of isotope into the duodenum. Subsequent to her surgery, she was basically stable, but continued to have some episodes of nausea, some anorexia, and abdominal discomfort. Her LFTs did remain elevated with her admission AST of 88 and AST of 83 yesterday. Her ALT was 71 on admission and was 69 yesterday. Her alkaline phosphatase was 524 on admission and was 458 yesterday. She did have an MRCP today which described a normal-appearing biliary tree without any sign of stones or obstruction, but did raise a suspicion of some increased fluid in the right upper quadrant, which was probably postoperative in nature, but the radiologist could not rule out a bile leak. She is therefore having a nuclear medicine HIDA scan at the time of this dictation. I did meet the patient while she is having her HIDA scan and she reports that her abdominal discomfort had improved. She did have 1 loose stool yesterday but has not had any further bowel movements. She did not have any hematochezia or melena. She did have some nausea but no vomiting. Again, prior to the onset of her symptoms last week, she did not have any particular GI symptoms and had enjoyed a good appetite with a regular bowel pattern. She denies any family history of liver disease and denies any personal history of liver disease. She does not use any significant amounts of alcohol. She has never noticed any jaundice in herself. MEDICATIONS: At home, none. Medications here in the hospital include acetaminophen p.r.n., Benadryl p.r.n., IV famotidine, Toradol p.r.n., melatonin p.r.n., milk of magnesia p.r.n., morphine p.r.n., Zofran p.r.n., oxycodone p.r.n. PAST MEDICAL HISTORY: She denies any medical problems such as heart disease, diabetes, stroke, lung disease or kidney disease. She has had a history of an ovarian cyst. SOCIAL HISTORY: She works in a [employer] for disabled [employer]. She smokes occasional marijuana. She does not smoke cigarettes nor use any significant amounts of alcohol. REVIEW OF SYSTEMS: CONSTITUTIONAL: Prior to becoming ill a few days ago, she had been feeling well with good energy, good appetite. SKIN: No rash. No pruritus. CARDIAC: No chest pain. PULMONARY: No coughing or hemoptysis. GI: As above. URINARY: No dysuria, no hematuria. NEUROLOGIC: No headache or seizures. PHYSICAL EXAMINATION: GENERAL: There is a pleasant, alert, comfortable-appearing female. She is currently having her HIDA scan. SKIN: Warm and dry. Anicteric sclerae. ABDOMEN: Soft, nondistended, and only with some focal mild tenderness. There is no mass or rebound. LABORATORY DATA: As above. She did have her HIDA scan which on my review shows good filling of the liver, extrahepatic bile duct and small intestine. There was no sign of any extravasation of isotope into the right upper quadrant or down to the right lower quadrant that is at the 60-minute miguel of the procedure. Her labs today showed a white blood cell count of 6.1, hemoglobin 10.2, platelets 229,000. Normal electrolytes. BUN 7, creatinine 0.6. Her GGTP was 169. Total bilirubin 0.5, AST 72, ALT 60, alkaline phosphatase 404 compared to 458 yesterday and 554 on December 17. Albumin 2.7. MRCP as described above. IMPRESSION: Given the patient's current clinical history, there does not appear to be any active biliary process occurring based on the MRI with MRCP and her HIDA scan from today. I suspect the elevated LFTs that are now getting better were from the initial cholecystitis. There is no evidence of any biliary disease to suggest that as a cause of her elevated alkaline phosphatase. The fact that her laboratories are improving would support the diagnosis of some cholecystitis-induced elevated LFTs. Again, there does not appear to be any biliary disease based on the MRCP and no sign of a bile leak on the 60-minute miguel of the HIDA scan, at least to my reading. PLAN: At this point, given all this information, I would recommend her diet could be advanced and she would hopefully be able to be discharged in the next 24 hours. I do not think she needs an ERCP at this time. I would recommend outpatient followup of her LFTs in the next week or 2 to be sure they do normalize. That can be done through her PCP and she should be referred back to see me as needed. I did review this with the patient and she is comfortable with that plan. Thanks for the consultation. MD MOLLY Smith/DONNA / [phone] [facility]
--- NOTE | 2024-12-21 02:39 | PM.PNGS ---
Subjective Subjective Date of Service: 12/20/24 Interval history: pt pod#2 and still feeling nauseated and abdo pain - lfts repeated and still elevated - d/w GI who suggested getting MRCP to r/o CBD stone - done and shows no stone normal anatomy but some fluid around GB fossa -? leak vs physiological after surgery . suggest HIDA which showed no leak and anatomy ok Physical Exam Vital Signs: Vital Signs: Last Vital Signs Temp 97.6 F 12/20/24 19:05 Pulse 77 12/20/24 19:05 Resp 18 12/20/24 19:05 BP 120/77 12/20/24 19:05 Pulse Ox 96 12/20/24 19:05 O2 Del Method Room Air 12/20/24 19:05 BMI result Body Mass Index 27.5 Const: General: cooperative, healthy appearing and in distress mild Eyes: Other: nonicteric GI: Other: abdomen soft - incsions ok mild diffuse tenderness Objective Data Active Medications Acetaminophen (Acetaminophen 325 Mg Tablet) 650 mg PO Q6H PRN PRN Reason: Pain, Mild 1-3,fever,headache Last Admin: 12/20/24 01:21 Dose: 650 mg Documented By: BRE Diphenhydramine HCl (Diphenhydramine Hcl 50 Mg/Ml Vial) 25 mg IVPUSH Q6H PRN PRN Reason: Rash Last Admin: 12/20/24 18:42 Dose: 25 mg Documented By: CRISTHIAN Famotidine (Famotidine/Pf 20 Mg/2 Ml Vial) 20 mg IVPUSH BID [facility] Last Admin: 12/20/24 20:25 Dose: 20 mg Documented By: KHANH Lactated Ringer's (Lr) 1,000 mls @ 100 mls/hr IVCONT .Q10H [facility] Last Admin: 12/20/24 16:54 Dose: 100 mls/hr Documented By: CRISTHIAN Ketorolac Tromethamine (Ketorolac Tromethamine 15 Mg/Ml Vial) 15 mg IVPUSH Q6H [facility] Last Admin: 12/20/24 21:33 Dose: 15 mg Documented By: KHANH Magnesium Hydroxide (Milk Of Magnesia 30 Ml Oral.Susp) 30 ml PO DAILY PRN PRN Reason: Constipation Melatonin (Melatonin 3 Mg Tablet) 6 mg PO BEDTIME PRN PRN Reason: Insomnia Last Admin: 12/19/24 20:54 Dose: 6 mg Documented By: TAWANDA Melatonin (Melatonin 3 Mg Tablet) 6 mg PO BEDTIME PRN PRN Reason: Sleep Last Admin: 12/20/24 21:49 Dose: 6 mg Documented By: KHANH Morphine Sulfate (Morphine Sulfate 4 Mg/Ml Cartridge) 3 mg IVPUSH Q3H PRN; Protocol PRN Reason: Pain, Severe (Pain Scale 7-10) Last Admin: 12/20/24 20:25 Dose: 3 mg Documented By: KHANH Naloxone HCl (Naloxone Hcl 0.4 Mg/Ml Vial) 0.04 mg IVPUSH Q5M PRN PRN Reason: Excessive sedation or RR < 8 Ondansetron HCl (Ondansetron Hcl 4 Mg/2 Ml Vial) 4 mg IVPUSH Q6H PRN PRN Reason: Nausea and Vomiting Last Admin: 12/21/24 00:22 Dose: 4 mg Documented By: KHANH Oxycodone HCl (Oxycodone Hcl Immed Release 5 Mg Tablet) 5 mg PO Q4H PRN PRN Reason: Pain, Mild (Pain Scale 1-3) Oxycodone HCl (Oxycodone Hcl Immed Release 5 Mg Tablet) 10 mg PO Q4H PRN PRN Reason: Pain, Moderate(Pain Scale 4-6) Last Admin: 12/20/24 21:49 Dose: 10 mg Documented By: KHANH Sodium Chloride (0.9 % Sodium Chloride Flush 3 Ml Syringe) 3 ml IVFLUSH [facility] Last Admin: 12/20/24 20:26 Dose: 3 ml Documented By: KHANH Labs 12/19/24 17:24 12/20/24 05:56 Labs: Laboratory Results - last 24 hr 12/20/24 12/20/24 05:56 06:12 Hold Purple Top SEE NOTE Anion Gap 8 L Estim Creat Clear Calc 118.1 Estimated GFR > 60 Random Glucose 82 Calcium 7.4 L Total Bilirubin 0.5 GGT 169 H AST 72 H ALT 60 H Alkaline Phosphatase 404 H Total Protein 5.6 L Albumin 2.7 L Lipase 29 Procedures Date of Service Date of Service: 12/21/24 Progress Note: A&P Assessment and plan (1) Elevated LFTs: Status: Acute Plan pt pod#2 from lap lou - pt had elevated lfts preop specifically alk phos very high and intraop pt with acute cholecystitis - postop pain and nausea dn labs cont to be elevated - MRCP ok anatomy, HIDA no leak - GI consult to cont with conservative care and slow advance of diet and po pain meds - will follow labs Time Spent With Patient Time: Total time managing care of this patient today ____ minutes. Quality Stroke Does the patient have a stroke diagnosis?: No VTE Prior VTE?: No VTE Risk Level:: Medical - low VTE Device Contraindication: N/A - Device Ordered VTE Drug Contraindication: Treatment Not Indicated
[2024-12-21] MEDS: Lactated Ringers 1,000 ML 100 ML IVCONT ×2 (02:41→09:26)
[2024-12-21 03:31] VITALS: BP 104/65; PULSE 70; RESP 16; TEMP 36.1; O2SAT 96
[2024-12-21 07:18] LABS: Alanine Aminotransferase 56 U/L (0-31); Albumin Level 2.9 g/dL (3.5-5.0); Alkaline Phosphatase 386 U/L (39-117); Aspartate Amino Transferase 62 U/L (5-31); Total Protein 6.0 g/dL (6.5-8.0)
[2024-12-21 07:46] VITALS: BP 103/72; PULSE 73; RESP 16; TEMP 36.4; O2SAT 96
--- NOTE | 2024-12-21 07:46 | P.PNGS_ITS ---
Subjective Subjective Date of Service: 12/21/24 <Felipe Alvarado PA-C - Last Filed: 12/21/24 08:06> 12/21/24 <Bautista Fitzgerald MD - Last Filed: 12/21/24 10:45> Interval history: feels a bit better. Pain improving, mostly in the center of the incisions and RLQ. Denies nausea or vomiting this morning. Denies fevers, chills. <Felipe Alvarado PA-C - Last Filed: 12/21/24 08:06> Physical Exam 2 Vital Signs: Vital Signs: Last Vital Signs Temp 97 F 12/21/24 03:31 Pulse 70 12/21/24 03:31 Resp 16 12/21/24 03:31 BP 104/65 12/21/24 03:31 Pulse Ox 96 12/21/24 03:31 O2 Del Method Room Air 12/21/24 03:31 BMI result Body Mass Index 27.5 <Felipe Alvarado PA-C - Last Filed: 12/21/24 08:06> Const: General: comfortable and no acute distress <Felipe Alvarado PA-C - Last Filed: 12/21/24 08:06> Orientation/consciousness: patient oriented x3 <Felipe Alvarado PA-C - Last Filed: 12/21/24 08:06> Resp: Effort & Inspection: normal respiratory effort and able to speak in complete sentences <Felipe Alvarado PA-C - Last Filed: 12/21/24 08:06> GI: Inspection: No distended <Felipe Alvarado PA-C - Last Filed: 12/21/24 08:06> Palpation (GI): Soft to palpation, Tenderness to palpation present (GI) (incisional), no guarding and not rigid <Felipe Alvarado PA-C - Last Filed: 12/21/24 08:06> Neuro: General: patient oriented x3 <PARTHA Carpenter Last Filed: 12/21/24 08:06> Objective Data Active Medications Acetaminophen (Acetaminophen 325 Mg Tablet) 650 mg PO Q6H PRN PRN Reason: Pain, Mild 1-3,fever,headache Last Admin: 12/20/24 01:21 Dose: 650 mg Documented By: BRE Diphenhydramine HCl (Diphenhydramine Hcl 50 Mg/Ml Vial) 25 mg IVPUSH Q6H PRN PRN Reason: Rash Last Admin: 12/21/24 02:43 Dose: 25 mg Documented By: KHANH Famotidine (Famotidine/Pf 20 Mg/2 Ml Vial) 20 mg IVPUSH BID [facility] Last Admin: 12/20/24 20:25 Dose: 20 mg Documented By: KHANH Lactated Ringer's (Lr) 1,000 mls @ 100 mls/hr IVCONT .Q10H [facility] Last Admin: 12/21/24 02:41 Dose: 100 mls/hr Documented By: KHANH Ketorolac Tromethamine (Ketorolac Tromethamine 15 Mg/Ml Vial) 15 mg IVPUSH Q6H [facility] Last Admin: 12/21/24 04:37 Dose: 15 mg Documented By: KHANH Magnesium Hydroxide (Milk Of Magnesia 30 Ml Oral.Susp) 30 ml PO DAILY PRN PRN Reason: Constipation Melatonin (Melatonin 3 Mg Tablet) 6 mg PO BEDTIME PRN PRN Reason: Insomnia Last Admin: 12/19/24 20:54 Dose: 6 mg Documented By: TAWANDA Melatonin (Melatonin 3 Mg Tablet) 6 mg PO BEDTIME PRN PRN Reason: Sleep Last Admin: 12/20/24 21:49 Dose: 6 mg Documented By: KHANH Morphine Sulfate (Morphine Sulfate 4 Mg/Ml Cartridge) 3 mg IVPUSH Q3H PRN; Protocol PRN Reason: Pain, Severe (Pain Scale 7-10) Last Admin: 12/20/24 20:25 Dose: 3 mg Documented By: KHANH Naloxone HCl (Naloxone Hcl 0.4 Mg/Ml Vial) 0.04 mg IVPUSH Q5M PRN PRN Reason: Excessive sedation or RR < 8 Ondansetron HCl (Ondansetron Hcl 4 Mg/2 Ml Vial) 4 mg IVPUSH Q6H PRN PRN Reason: Nausea and Vomiting Last Admin: 12/21/24 00:22 Dose: 4 mg Documented By: KHANH Oxycodone HCl (Oxycodone Hcl Immed Release 5 Mg Tablet) 5 mg PO Q4H PRN PRN Reason: Pain, Mild (Pain Scale 1-3) Oxycodone HCl (Oxycodone Hcl Immed Release 5 Mg Tablet) 10 mg PO Q4H PRN PRN Reason: Pain, Moderate(Pain Scale 4-6) Last Admin: 12/20/24 21:49 Dose: 10 mg Documented By: KHANH Sodium Chloride (0.9 % Sodium Chloride Flush 3 Ml Syringe) 3 ml IVFLUSH [facility] Last Admin: 12/21/24 07:30 Dose: Not Given Documented By: BRAEDEN Non-Admin Reason: IV Running <Felipe Alvarado PA-C - Last Filed: 12/21/24 08:06> Labs CBC & Chem 7: 12/19/24 17:24 12/20/24 05:56 <Felipe Alvarado PA-C - Last Filed: 12/21/24 08:06> Labs: Laboratory Results - last 24 hr 12/20/24 12/21/24 05:56 06:25 Hold Purple Top SEE NOTE Anion Gap 8 L Estim Creat Clear Calc 118.1 Estimated GFR > 60 Random Glucose 82 Calcium 7.4 L Total Bilirubin 0.5 0.5 Direct Bilirubin 0.2 AST 72 H 62 H ALT 60 H 56 H Alkaline Phosphatase 404 H 386 H Total Protein 5.6 L 6.0 L Albumin 2.7 L 2.9 L <Felipe Alvarado PA-C - Last Filed: 12/21/24 08:06> Procedures Date of Service Date of Service: 12/21/24 <Felipe Alvarado PA-C - Last Filed: 12/21/24 08:06> 12/21/24 <Bautista Fitzgerald MD - Last Filed: 12/21/24 10:45> Progress Note: A&P Assessment and plan (1) Elevated LFTs: Status: Acute <Felipe Alvarado PA-C - Last Filed: 12/21/24 08:06> Assessment and Plan: Feels better this morning Less pain HIDA scan yesterday does not show any leak Looks well overall Abdomen is soft and benign LFTs continue to improve Okay to DC home after lunch Seen and examined independently Discharge instructions reviewed with patient <Bautista Fitzgerald MD - Last Filed: 12/21/24 10:45> (2) S/P laparoscopic cholecystectomy: Status: Acute <Felipe Alvarado PA-C - Last Filed: 12/21/24 08:06> Assessment and Plan: 29 year old female POD3 s/p laparascopic cholecystectomy. Overall improving. Feeling less nausea, no more vomiting. Pain is improving. HIDA yesterday shows no leak. Liver enzymes slowly trending down. GI recommending advancing diet, outpt liver profile in 1-2 weeks, no ERCP needed. On exam the abdomen is soft, tender localized to the incision sites. Dressings removed, incision sites appear clean and dry, no drainage. Steri strips remain in place. Was unable to have diet yesterday due to HIDA scan, will see how she does with diet and possible DC later continue diet ambulation and spirometry as tolerated pain control <Felipe Alvarado PA-C - Last Filed: 12/21/24 08:06> Time Spent With Patient Time: Total time managing care of this patient today ____ minutes. <Felipe Alvarado PA-C - Last Filed: 12/21/24 08:06> Quality Stroke Does the patient have a stroke diagnosis?: No <Felipe Alvarado PA-C - Last Filed: 12/21/24 08:06> VTE Prior VTE?: No <Felipe Alvarado PA-C - Last Filed: 12/21/24 08:06> VTE Risk Level:: Medical - low <PARTHA Carpenter Last Filed: 12/21/24 08:06> VTE Device Contraindication: N/A - Device Ordered <Felipe Alvarado PA-C - Last Filed: 12/21/24 08:06> VTE Drug Contraindication: Treatment Not Indicated <PARTHA Carpenter Last Filed: 12/21/24 08:06>
[2024-12-21] MEDS: oxyCODONE HCl Immed Release 5 MG TABLET 10 MG PO (07:59)
--- NOTE | 2024-12-21 13:21 | MHC.CM.PN ---
PT WILL DC HOME TODAY VIA PRIVATE TRANSPORT
--- NOTE | 2024-12-21 15:04 | PC.NURSE ---
spoke w/ Md regarding pt's work restrictions and when pt can return to work. d/c paperwork was gone over with pt
--- NOTE | 2024-12-22 15:43 | PM.DS ---
DS: Providers Provider Date of Service: 12/21/24 Date of admission: 12/17/24 15:50 Date of discharge: 12/21/24 Primary care physician: Unknown Physician Admitting clinician: Nano Thao Attending physician on admission: Nano Thao Consults: 12/20/24 10:48 Consult to Gastroenterology Routine Consulting Provider: Herber Mccain Reason for consultation: elevated lfts s/p lap lou Has provider been notified: Yes Attending physician on discharge: Talha Andrews DS: Diagnosis Discharge Diagnosis (1) Elevated LFTs: Status: Acute (2) S/P laparoscopic cholecystectomy: Status: Acute DS: Summary Hospital Course Hospital Course: Admission HPI: Kailey Canales is a 29 year old female who over the last 4 days have had several episodes of abdominal pain in the right upper quadrant area with some nausea. This happened on Friday but improve by but then last night it happened again where she started having severe right upper quadrant pain radiating a little wounds towards the back and as a result she came to the emergency room. Here she was noted to have elevated LFTs with her alk-phos being moderately elevated and having some degree of hepatomegaly. She did have ultrasound which showed thickening of the gallbladder with some pain over the right upper quadrant. HIDA scan was recommended and this was carried out which revealed filling of the gallbladder but a low ejection fraction. As a result the patient is being admitted for biliary disease and will undergo laparoscopic cholecystectomy. She has never had pain like this before in his very concerned to never have it again. She denies any family history of any biliary disease. No other issues no chest pain shortness of breath respiratory issues no diarrhea constipation. Hospital course: Patient was admitted for acute cholecystitis. She was brought to the operating room on 12/17 for laparoscopic cholecystectomy possible open. She tolerated procedure well and was transferred to the [facility] floor for further evaluation and management. [age] patient experiencing abdominal pain, appropriate for postsurgical. Also had a rash, complaining of a being itchy. She was given Benadryl for the rash. Experiencing some nausea with diet. now ambulating. POD2 patient feeling somewhat better. Has passed self or bowel movements. Able to eat some food, started feeling nauseous after. LFTs were very similar to preop, case was discussed with Dr. Mccain from Gastroenterology, we obtained stat MRCP the next morning repeat labs. POD 3 patient is still feeling nauseated, experiencing pain. Appetite has been repeated and remained elevated MRCP was obtained to rule out a common bile duct stone, there was no stone found but some fluid around the gallbladder fossa. We pain HIDA which showed no leak at the anatomy was appropriate. . He 4. Patient feeling better pain is improving now mostly localized to the incisions. No more nausea or vomiting, no fevers or chills. She felt ready to discharge. At the time of discharge patient was in stable condition, abdominal exam was tender around the incision sites but otherwise soft and benign. LFTs were trending down. Status at Discharge Functional status at discharge: independent ambulation Overall status at discharge: patient is progressing back to baseline Time Attestation Discharge Coordination Time (in mins): 30 Quality: Safe Use of Opioids Does Pt have an Active Cancer Diagnosis on the Problem List?: No Quality: Stroke Does the patient have a stroke diagnosis?: No Physical Exam Vital Signs: Vital Signs: Last Vital Signs Temp 97.5 F 12/21/24 07:46 Pulse 73 12/21/24 07:46 Resp 16 12/21/24 07:46 BP 103/72 12/21/24 07:46 Pulse Ox 96 12/21/24 07:46 O2 Del Method Room Air 12/21/24 07:46 BMI result Body Mass Index 27.5 Const: General: comfortable and no acute distress Orientation/consciousness: patient oriented x3 Resp: Effort & Inspection: normal respiratory effort and able to speak in complete sentences GI: Inspection: No distended Palpation (GI): Soft to palpation, Tenderness to palpation present (GI) (incisional), no guarding and not rigid Neuro: General: patient oriented x3 DS: Data Data Completed and Pending Completed studies during hospitalization [Text1]: Pending at discharge 12/17/24 16:54 Surgical [PTH] Routine Discharge Plan Discharge Anticipated Discharge Date/Time: 12/21/24 12:26 Patient Disposition: Home, Self-Care Discharge Diagnosis: acute cholecystitis Referrals: Bautista Fitzgerald MD [Physician, General Surgery] - 2 Weeks Physician,Unknown J [Primary Care Provider, Medical] - 1 Week Discharge Medications: New docusate sodium [Colace] 100 mg capsule 100 mg PO BID Qty: 30 0RF oxycodone 5 mg tablet 5 mg PO Q6H PRN (Reason: pain) Qty: 16 0RF Rx Instructions: Partial Fill upon patient request. Discharge Orders: Discharge Order (Routine); Ordered 12/21/24 Ordered By: Felipe Alvarado Diet: Advance to usual diet Activity on Discharge: No heavy lifting Stand Alone Forms: Patient Portal Discharge page, Work/School Release Print Language: Latvian Activity Restrictions/Additional Instructions: If the incision area is tender, you may apply an ice pack for short intervals (No more than 20 minutes on, followed by at least 20 minutes off). Do not apply heat. Do not use creams, lotions, or topical antibiotics unless instructed to do so by your surgeon. These can cause infection or allergic reaction. No lifting more than 20 lbs Okay to shower No strenuous activities Call the office for follow-up in 2 weeks - with Dr. Fitzgerald Call Your Doctor If: -Your temperature exceeds 101.5? F -You experience excessive pain or swelling -You have an unexpected reaction to medication -You have excessive bleeding -You experience continued vomiting/nausea -Your incision begins to separate -Your incision shows signs of infection such as increased redness, swelling, excessive pain, drainage (light blood or clear fluid is normal) or heat Care Plan Goals: Return to baseline Health Concerns: Postop pain Plan of Treatment: Oral pain meds Follow up in the office Assessment: Doing well postop Discharge Date/Time: 12/21/24 15:04
== END 2024-12-21 15:04 | disposition home or self-care (01) | DRG 263 ==
LOC: HO.ED 15:34 → HO.EDOVER 15:51 → HO.S3 19:05
PROVIDERS: Internal Medicine; Physician Assistant; Admitting Provider Surgery; Emergency Provider Emergency Medicine; Visit Provider Surgery
PROC: 0FT44ZZ Resection of Gallbladder, Percutaneous Endoscopic Approach (ICD-10-PCS; CPT 47562; principal; 2024-12-17 15:30)
DX: K80.42 Calculus of bile duct with acute cholecystitis without obstruction (principal); K82.8 Other specified diseases of gallbladder
CPT/HCPCS: 36415; 74177; 74181; 76705; 78226; 78227; 80053; 80076; 81025; 82977; 83690; 83735; 84484; 85025; 86140; 88304; 93005; 99285; A9537; J0330; J1100; J1171; J1200; J1308; J1790; J1885; J2003; J2004; J2250; J2270; J2405; J2704; J2805; J3010; J7120; Q9967

== ENCOUNTER → 2024-12-17 00:37 | Outpatient (BNV) | payer MEDICAID, SELFPAY | PROVIDERS: Emergency Provider Emergency Medicine; Visit Provider Internal Medicine | DX: R07.9 Chest pain, unspecified (principal) | CPT/HCPCS: 93010 ==

== ENCOUNTER → 2024-12-17 01:42 | Outpatient (BNV) | payer MEDICAID, SELFPAY | PROVIDERS: Emergency Provider Emergency Medicine; Visit Provider Surgery | DX: R79.89 Other specified abnormal findings of blood chemistry (principal) | CPT/HCPCS: 47562; 99024; 99223 ==

== ENCOUNTER → 2024-12-17 02:57 | Outpatient (BNV) | payer MEDICAID, SELFPAY | PROVIDERS: Emergency Provider Emergency Medicine; Visit Provider Radiology Diagnostic Radiology | DX: K82.8 Other specified diseases of gallbladder (principal); R16.2 Hepatomegaly with splenomegaly, not elsewhere classified | CPT/HCPCS: 74177; 76705; 78227 ==

== ENCOUNTER 2024-12-17 15:50 | Outpatient (BNV) | payer MEDICAID, SELFPAY | END 2024-12-20 09:00 | PROVIDERS: Admitting Provider Surgery; Emergency Provider Emergency Medicine; Visit Provider Radiology Diagnostic Radiology | DX: R94.5 Abnormal results of liver function studies (principal); R18.8 Other ascites; R16.2 Hepatomegaly with splenomegaly, not elsewhere classified; R59.0 Localized enlarged lymph nodes; R11.0 Nausea; R10.9 Unspecified abdominal pain | CPT/HCPCS: 74181; 78226 ==

== ENCOUNTER 2024-12-26 10:00 | Emergency (ER) | payer MEDICAID, SELFPAY ==
--- NOTE | ~2024-12-26 | CT_ITS ---
CLINICAL HISTORY: abd pain, s p lou CT abdomen and pelvis with contrast Comparison: CT/REG/SR - CT ABDOMEN PELVIS W IV CON - 12/17/24 03:11 EDT Findings: The lung bases are clear. Elongation of the right lobe of the liver which may represent a normal variant. Multiple cysts are present within the liver and kidneys. The spleen, pancreas and adrenal glands are unremarkable. There has been interval cholecystectomy. There is a 4.8 x 3.3 x 3.2 cm walled-off fluid collection without gas within the gallbladder fossa. No biliary dilatation. No bowel obstruction, pneumoperitoneum, or pneumatosis. There is edema of the periumbilical soft tissues, compatible with recent surgery. There is a small amount of pelvic free fluid, new since the prior study. There is a 2.9 cm left ovarian cyst, new since the prior study. The urinary bladder is unremarkable. The appendix is normal. No acute fracture. IMPRESSION: 1. 4.8 cm walled-off fluid collection within the gallbladder fossa. This could represent a simple postoperative collection or biloma. Abscess not excluded. 2. There is a small amount of pelvic free fluid. 3. There is a 2.9 cm left ovarian cyst. This most likely represents a physiologic cyst. This document has been electronically signed by: Malinda Anguiano MD on 12/26/2024 13:30:36
[2024-12-26 10:05] VITALS: BP 134/78; PULSE 97; RESP 16; TEMP 36.9; O2SAT 98; BMI 22.3
[2024-12-26 10:21] LABS: MANUAL DIFF FLAG NO
[2024-12-26 10:24] LABS: Hematocrit 37.8 % (37.0-47.0); Hemoglobin 13.0 g/dl (12.0-16.0); Imm Gran Abs Auto 0.01 X10*3/uL (0.00-0.03); Imm Gran Pct Auto 0.1 % (0.0-0.4); Lymphocytes Absolute Auto 3.8 X10*3/uL (1.2-4.9); Mean Corpuscular HGB Conc 34.4 g/dl (31.0-35.0); Mean Corpuscular Hemoglobin 27.1 pg (27.0-33.0); Mean Corpuscular Volume 78.9 fL (80.0-98.0); NRBC Abs Auto 0.000 X10*3/uL (0.0-0.012); NRBC Pct Auto 0.0 /100WBC (0.0-0.2); Platelet Count 310 X10*3/uL (160-400); Red Blood Count 4.79 X10*6/uL (4.20-5.50); White Blood Count 7.4 X10*3/uL (4.8-10.8)
[2024-12-26 10:41] LABS: Anion Gap 13 (12-20); Blood Urea Nitrogen 12 mg/dL (9-16); Calcium 9.0 mg/dL (8.4-10.2); Carbon Dioxide 24 mmol/L (22-29); Chloride 105 mmol/L (96-108); Creatinine Clr Calc Pharmacy 100.5; Estimated Glomerular Filt Rate > 60; Potassium 4.4 mmol/L (3.3-5.1); Sodium 138 mmol/L (135-145)
--- NOTE | 2024-12-26 10:46 | ED.GENADULT ---
HPI - General Adult General Chief complaint: Abdominal Pain Stated complaint: belly button hurts might be infected Time Seen by Provider: 12/26/24 10:45 Source: patient Mode of arrival: ambulatory Limitations: no limitations History of Present Illness ED Provider: Joselin Moreno PA-C HPI narrative: Patient is a 29 year old assigned female at with a history of cholecystectomy on 12/17/2024 here at [facility] presenting to the emergency department today with abdominal pain. Patient states that starting last night she began to have pain around her belly button and near her surgical incision. Patient states that she has been prescribed oxycodone and a stool softener which she has been taking but she has been having some constipation. Patient states that she has not yet had her menstrual cycle this month but she is due for it soon. Patient denies any other complaints at this time including chest pain or vomiting. Related Data Previous Rx's ?Medication ?Instructions ?Recorded docusate sodium 100 mg capsule 100 mg PO BID #30 caps 12/21/24 (Colace) oxycodone 5 mg tablet 5 mg PO Q6H PRN pain #16 tabs 12/21/24 cephalexin 500 mg capsule 500 mg PO Q6H 7 days #28 caps 12/26/24 Allergies Allergy/AdvReac Type Severity Reaction Status Date / Time No Known Allergies (No Known Allergy Verified 12/26/24 10:07 Allergies*) Review of Systems Constitutional: Constitutional: Reports as per HPI Eyes: Eyes: Reports as per HPI ENT: Reports as per HPI Cardiovascular: Cardiovascular: Reports as per HPI Respiratory: Respiratory: Reports as per HPI Gastrointestinal: Gastrointestinal: Reports as per HPI Genitourinary: Genitourinary: Reports as per HPI Musculoskeletal: Musculoskeletal: Reports as per HPI Integumentary/Breasts: Skin/Breast: Reports as per HPI Neurologic: Reports as per HPI Psychiatric: Psychiatric: Reports as per HPI Endocrine: Endocrine: Reports as per HPI Hematologic/Lymphatic: Hematologic/Lymphatic: Reports as per HPI Allergic/Immunologic: Allergic/Immunologic: Reports as per HPI PMFSH Past Medical History Attestation statement: The following information was validated with the patient. Source: old records reviewed and nursing notes reviewed Medical History Uterine fibroid Ovarian cyst Asthma Social History Social History Household Members: Family and Children Housing: Apartment Do you presently have visiting nurse or other home services: No Unable to assess alcohol history related to: Unknown Alcohol intake: unknown Patient Tobacco Use Status: Never used Tobacco service: No Physical Exam ED Vital Signs: Vital Signs - 24 hr 12/26/24 10:05 12/26/24 12:00 12/26/24 14:19 Temperature 98.4 F 98.2 F 98.2 F Pulse Rate 97 84 84 Respiratory Rate 16 16 16 Blood Pressure 134/78 118/62 118/62 Pulse Oximetry 98 98 98 Oxygen Delivery Method Room Air Room Air Room Air BMI result Body Mass Index 22.3 Const General: cooperative, no acute distress, alert and awake Nutritional Appearance: well nourished Orientation/consciousness: patient oriented x3 HENMT Head: Yes normal to inspection and Yes atraumatic Ears: hearing grossly normal bilaterally and external ears normal General nose exam: Normal external nose present, no nasal discharge noted and no epistaxis Face and sinus: Yes normal facial exam, No abrasion and No laceration Mouth: Normal oral and palatal mucosa present, no drooling and no muffled voice Eyes General: appearance normal, both eyes and all related structures Periorbital: periorbital findings normal Eyelids: Yes eyelids normal Conjunctivae: conjunctivae normal Pupils: Equal, round and reactive pupils present EOM: EOMs intact bilaterally Neck Neck: Yes normal visual inspection and Yes full ROM Resp Effort & Inspection: normal respiratory effort and able to speak in complete sentences GI Other: well healing surgical incision to the abdomen - no surrounding erythema or warmth Neuro General: patient oriented x3, moves all extremities and CN's II-XI intact bilaterally Cranial nerves: Yes Equal, round and reactive pupils present Cognition (Neuro): normal cognition Extrem General: Yes normal to inspection, Yes full ROM and Yes capillary refill normal Psych Appearance: grossly normal Mental Status: mental status grossly normal Affect: normal affect Attitude: cooperative Thought process: Normal thought process present Thought content: Normal thought content present Insight: Good insight present (Psych) Medications Administered Discontinued Medications Generic Name Dose Route Start Last Admin Trade Name Freq PRN Reason Stop Dose Admin Iohexol 100 ml 12/26/24 11:51 12/26/24 11:51 Iohexol 350 Mg/Ml 100 Ml Infus..Btl IV 12/26/24 11:52 85 ml ONCE ONE Administration Medical Decision Making Medical Decision Making [facility] Narrative: Patient is a 29 year old assigned female at with a history of cholecystectomy on 12/17/2024 here at [facility] presenting to the emergency department today with abdominal pain. Patient's physical exam was as noted in the physical exam portion of this note. Patient's blood work was unremarkable. Patient's urine showed no acute process. Patient's CT abd/pelvis showed a 4.8cm walled-off fluid collection within the gallbladder fossa which the radiologist cites could be postop collection or biloma but an abscess isn't excluded and a left ovarian cyst with some free fluid in the pelvis suggesting probable rupture. Patient's clinical presentation is most consistent with an ovarian abscess rupture and not an acute abscess. I spoke to the general surgeon ammunition components inspector, Dr. Andrews who stated he saw some inflammation around the umbilicus and he believes the fluid collection is just postoperative fluid. Together we agreed a reasonable treatment plan for the patient would be PO ABX, outpatient follow up, and strict return precautions. I explained my physical exam findings as well as all test results to the patient. I answered all questions asked by the patient. I stressed the importance of the patient taking her medication as directed (either prescribed or as the over the counter packaging recommends). I stressed the importance of the patient following up with her primary care provider and the general surgery team. I stressed the importance of the patient returning to the emergency department immediately if her symptoms were to worsen or if she were to develop any dizziness, shortness of breath, difficulty breathing, chest pain, blurry vision, loss of vision, nausea, vomiting, abdominal pain, fever, chills, back pain, or any other complaints. Patient verbalized agreement and understanding with this treatment plan and discharge. Differential Diagnosis Differential Diagnoses: The differential diagnosis associated with the presentation includes Post operative fluid collection Post operative infection Ruptured ovarian cyst Admission/Observation Consideration of admission/observation: Escalation of care including admission/observation considered Patient would have been admitted to the hospital had her work up had any findings where hospital admission was appropriate and her clinical presentation warranted hospital admission. Consult Healthcare Provider Management of the patient was discussed with: Decal Applier (spoke with the general surgeon ammunition components inspector as noted in the MDM Rationale portion of this note. ) Lab Data [facility] Lab Attestation statement: I reviewed the patient's lab results. My interpretation of these results are in the MDM Rationale portion of this note. 12/26/24 10:15 12/26/24 10:15 Labs: Lab Results 12/26/24 12/26/24 Range/Units 10:15 11:29 WBC 7.4 (4.8-10.8) X10*3/uL RBC 4.79 D (4.20-5.50) X10*6/uL Hgb 13.0 D (12.0-16.0) g/dl Hct 37.8 D (37.0-47.0) % MCV 78.9 L (80.0-98.0) fL MCH 27.1 (27.0-33.0) pg MCHC 34.4 (31.0-35.0) g/dl RDW 14.4 (11.0-16.0) % Plt Count 310 D (160-400) X10*3/uL MPV 8.9 L (9.4-12.3) fL Immature Gran % (Auto) 0.1 (0.0-0.4) % Neut % (Auto) 38.2 L (45-73) % Lymph % (Auto) 51.2 H (20-40) % [place] % (Auto) 6.9 (2-11) % Eos % (Auto) 2.8 (0-4) % Baso % (Auto) 0.8 (0-2) % Lymph # (Auto) 3.8 (1.2-4.9) X10*3/uL [place] # (Auto) 0.5 (0.1-1.2) X10*3/uL Eos # (Auto) 0.2 (0.0-0.4) X10*3/uL Baso # (Auto) 0.1 (0.0-0.2) X10*3/uL Abs Immat Gran (auto) 0.01 (0.00-0.03) X10*3/uL Absolute Neuts (auto) 2.8 (2.0-8.3) x10*3/uL Absolute Nucleated RBC 0.000 (0.0-0.012) X10*3/uL Nucleated RBC % (auto) 0.0 (0.0-0.2) /100WBC Sodium 138 (135-145) mmol/L Potassium 4.4 (3.3-5.1) mmol/L Chloride 105 (96-108) mmol/L Carbon Dioxide 24 (22-29) mmol/L Anion Gap 13 (12-20) BUN 12 (9-16) mg/dL Creatinine 0.70 (0.5-1.4) mg/dL Estim Creat Clear Calc 100.5 Estimated GFR > 60 Random Glucose 100 (60-115) mg/dL Calcium 9.0 D (8.4-10.2) mg/dL Total Bilirubin 0.8 (0.0-1.0) mg/dL Direct Bilirubin 0.2 (0.0-0.5) mg/dL AST 33 H (5-31) U/L ALT 28 (0-31) U/L Alkaline Phosphatase 315 H (39-117) U/L Total Protein 8.2 H (6.5-8.0) g/dL Albumin 4.2 (3.5-5.0) g/dL Beta HCG, Quant < 2 mIU/mL Urine Color Yellow Urine Appearance Clear Urine pH 5.0 (5.0-9.0) Ur Specific [place] 1.015 (1.005-1.025) Urine Protein Negative (Neg-Trace) mg/dL Urine Glucose (UA) Negative (Negative) mg/dL Urine Ketones Negative (Negative) mg/dL Urine Blood Negative (Negative) Urine Nitrite Negative (Negative) Ur Leukocyte Esterase Small (1+) H (Negative) Urine RBC 0-2 (0-2) /HPF Urine WBC 0-5 (0-5) /HPF Ur Squamous Epith Cells 3-5 (0-2) /HPF Urine Bacteria 1+ (None Seen) Hyaline Casts 0-2 (0-2) /LPF Independent Interpretation I performed an independent interpretation of an: CT Scan Interpretation: My interpretation is in agreement with the radiologist's impression of this imaging study. CLINICAL HISTORY: abd pain, s p lou CT abdomen and pelvis with contrast Comparison: CT/REG/SR - CT ABDOMEN PELVIS W IV CON - 12/17/24 03:11 EDT Findings: The lung bases are clear. Elongation of the right lobe of the liver which may represent a normal variant. Multiple cysts are present within the liver and kidneys. The spleen, pancreas and adrenal glands are unremarkable. There has been interval cholecystectomy. There is a 4.8 x 3.3 x 3.2 cm walled-off fluid collection without gas within the gallbladder fossa. No biliary dilatation. No bowel obstruction, pneumoperitoneum, or pneumatosis. There is edema of the periumbilical soft tissues, compatible with recent surgery. There is a small amount of pelvic free fluid, new since the prior study. There is a 2.9 cm left ovarian cyst, new since the prior study. The urinary bladder is unremarkable. The appendix is normal. No acute fracture. IMPRESSION: 1. 4.8 cm walled-off fluid collection within the gallbladder fossa. This could represent a simple postoperative collection or biloma. Abscess not excluded. 2. There is a small amount of pelvic free fluid. 3. There is a 2.9 cm left ovarian cyst. This most likely represents a physiologic cyst. This document has been electronically signed by: Malinda Anguiano MD on 12/26/2024 13:30:36 Dictated By: Malinda Anguiano MD Signed By: Electronically signed by Malinda Anguiano MD 12/26/24 1331 Radiology Impression Discussion of test interpretation with radiology: I have reviewed the radiologist's reading. External Record Review External record reviewed: Outpatient record Prescription Management I considered prescription management with: Antibiotic (patient prescribed an antibiotic as noted in the MDM Rationale portion of this note. ) Critical Care Time Critical Care Time Critical Care Time: Yes Total Critical Care Time: 37 Attestation: I spent 37 minutes of Critical Care Time with this patient. This does not include time spent on separately reported billable procedures. Discharge Plan Discharge Clinical Impression: Post op infection, Ovarian cyst Patient Disposition: Home, Self-Care Instructions: Ovarian Cyst (ED) Additional Instructions: Your scan showed evidence of a fluid collection where your surgery occurred - the surgeon does not believe this is anything to be concerned about at this time. The scan did show a little bit of inflammation around the internal portion of your belly button - so to be safe we are going to treat you with an antibiotic. Your scan also showed a ruptured ovarian cyst which is more than likely what is causing your pain. Your body will reabsorb this and there is nothing to do but take NSAIDs. IF you are prescribed home medications and/or you are taking over the counter medications at home - it is very important you continue to do so as prescribed / directed unless told otherwise. Follow up with a primary care provider. Return to the emergency department immediately if your symptoms worsen or if you develop any numbness, tingling, dizziness, shortness of breath, difficulty breathing, chest pain, blurry vision, loss of vision, nausea, vomiting, abdominal pain, fever, chills, back pain, or any other complaints. If you do not have a primary care provider - call any of the below numbers to establish and follow up with a primary care provider. [facility] Primary Care ([place]) [phone] [place] [address], [address] [facility] Primary Care ([address] [place]) [phone] [place] [address], [address] [facility], [address] [facility] Primary Care ([address] [place]) [phone] [place] [address], [address] [facility], [address] [facility] Care ([place]) [phone] [place] [address] [address] [facility], [address] [facility] Family Medicine [phone] [place] [address], [address] Please see the information below about our Patient Portal. If you are not yet enrolled in the [facility] Patient Portal, you will receive an enrollment email invitation following your visit to any [facility] [place] care setting. You may also self-enroll in the Patient Portal by visiting our website: [email or web address] The following information is required to access the Patient Portal: - Your [facility] Medical Record Number - Your personal home email address (must match what is in your electronic medical record, Registration staff can assist with this) - Name - Date of Capabilities of the Patient Portal: - Message some providers - View upcoming appointments - Access your health summary, medical history, and visit history - View current conditions and allergies - View procedure and lab results - View your medications, including guidelines, side effects, and precautions - Complete pre-appointment questionnaires requested by your provider - Ready summary reports of your office visits and procedures To access the Patient Portal Mobile Saritha, follow these directions: - Search [employer] in the Saritha Store or [employer] Store - Download the Saritha - Search for [facility] - Enter your login/password Prescriptions: New cephalexin 500 mg capsule 500 mg PO Q6H 7 Days Qty: 28 0RF No Action docusate sodium [Colace] 100 mg capsule 100 mg PO BID Qty: 30 0RF oxycodone 5 mg tablet 5 mg PO Q6H PRN (Reason: pain) Qty: 16 0RF Rx Instructions: Partial Fill upon patient request. Referrals: [facility] General Surgeons [Provider Group, General Surgery] Referral Note: Follow up with the general surgeons office. Interventions: ED Discharge Assessment Last Done: 12/26/24 14:19 Discharge Date/Time: 12/26/24 14:19 Print Language: Faroese
[2024-12-26 11:17] LABS: Alanine Aminotransferase 28 U/L (0-31); Albumin Level 4.2 g/dL (3.5-5.0); Alkaline Phosphatase 315 U/L (39-117); Aspartate Amino Transferase 33 U/L (5-31); Total Protein 8.2 g/dL (6.5-8.0)
[2024-12-26 11:41] LABS: Appearance Urine Clear; Glucose Urine UA Negative (Negative); PH 5.0 (5.0-9.0); Specific Gravity - Urine 1.015 (1.005-1.025); UMIC TRIGGER UACC YES
[2024-12-26] MEDS: iohexoL 350 MG/ML 100 ML INFUS..BTL IV (11:51)
[2024-12-26 11:54] LABS: UACC Culture Trigger YES
[2024-12-26 12:00] VITALS: BP 118/62; PULSE 84; RESP 16; TEMP 36.8; O2SAT 98
[2024-12-26 14:19] VITALS: BP 118/62; PULSE 84; RESP 16; TEMP 36.8; O2SAT 98
== END 2024-12-26 14:19 | disposition home or self-care (01) ==
PROVIDERS: Physician Assistant Medical; Emergency Provider Emergency Medicine
DX: K91.89 Other postprocedural complications and disorders of digestive system (principal); N83.292 Other ovarian cyst, left side; R10.9 Unspecified abdominal pain; Z98.890 Other specified postprocedural states
CPT/HCPCS: 36415; 74177; 80048; 80076; 81001; 84702; 85025; 87086; 99283; 99285; Q9967

== ENCOUNTER → 2024-12-26 10:52 | Outpatient (BNV) | payer MEDICAID, SELFPAY | PROVIDERS: Visit Provider Radiology Diagnostic Radiology | DX: K82.8 Other specified diseases of gallbladder (principal); R18.8 Other ascites; N83.202 Unspecified ovarian cyst, left side | CPT/HCPCS: 74177 ==

== ENCOUNTER → 2024-12-29 13:27 | Outpatient (BNVA) | payer MEDICAID, SELFPAY | PROVIDERS: Visit Provider Surgery | DX: Z48.89 Encounter for other specified surgical aftercare (principal) | CPT/HCPCS: 99211 ==

== ENCOUNTER 2025-03-20 14:12 | Emergency (ER) | payer MEDICAID, SELFPAY ==
--- NOTE | ~2025-03-20 | CT_ITS ---
CLINICAL HISTORY: worsenig upper abdominal pain after cholecytectom CT abdomen and pelvis with contrast Comparison: CT/REG/SR - CT ABDOMEN PELVIS W IV CON - 12/26/24 11:37 EDT Findings: No consolidation or effusion. Multiple small bilateral renal and liver cysts. Cholecystectomy. Trace fluid at the gallbladder fossa, no enhancement. Abdominal solid organs otherwise unremarkable. No urolithiasis. No bowel obstruction, pneumoperitoneum, or pneumatosis. Mesenteric vessels are patent. Uterus and ovaries unremarkable. Incidental left corpus luteum. Normal appendix. No ascites or hernia. No acute fracture. IMPRESSION: 1. Trace fluid at the cholecystectomy site. Previous gallbladder fossa fluid collection has otherwise resolved. 2. Additional nonacute findings as above. This document has been electronically signed by: Fatmata Saavedra MD on 03/21/2025 01:12:01
[2025-03-20 14:27] VITALS: BP 115/59; PULSE 105; RESP 16; TEMP 36.8; O2SAT 98; BMI 27.9
--- NOTE | 2025-03-20 14:31 | ED.GENADULT ---
HPI - General Adult General Chief complaint: Abdominal Pain Stated complaint: Headache Time Seen by Provider: 03/20/25 21:02 Source: patient Mode of arrival: ambulatory Limitations: no limitations History of Present Illness ED Provider: Dr. Swathi Oreilly HPI narrative: Patient comes to the emergency room complaining of nausea and headache. Patient states it has been about a week, she has has been alternating at home Tylenol and Motrin without any relief. Patient reporting sensitivity to sound making her headache worse. Also, patient states that she has been having bilateral abdominal pain intermittently for 4 months. No changes in pain. No vomiting. Patient states that she has been drinking plenty of fluid and [place]. Patient reports intermittent episodes of diarrhea. Last time that she took anything for diarrhea was a proximally a week ago, at 1 dose of Pepto-Bismol. Today patient had 1 episode of diarrhea. Related Data Previous Rx's ?Medication ?Instructions ?Recorded docusate sodium 100 mg capsule 100 mg PO BID #30 caps 12/21/24 (Colace) oxycodone 5 mg tablet 5 mg PO Q6H PRN pain #16 tabs 12/21/24 cephalexin 500 mg capsule 500 mg PO Q6H 7 days #28 caps 12/26/24 dicyclomine 20 mg tablet 20 mg PO BID PRN abdominal pain 03/21/25 #20 tabs sumatriptan succinate 50 mg tablet See Rx Instructions PO .COMPLEX 03/21/25 #10 tabs Allergies Allergy/AdvReac Type Severity Reaction Status Date / Time No Known Allergies (No Known Allergy Verified 03/20/25 14:28 Allergies*) Review of Systems Review of Systems: Constitutional : No Weight loss, No Fever, No Chills, No Night Sweats, No Fatigue, No Malaise ENT/Mouth : No Hearing loss, No Ear Pain, No Nasal Congestion, No Sinus Pain, No Hoarseness, No sore throat, No Rhinorrhea, No Swallowing Difficulty Eyes: No Eye Pain, No Swelling, No Redness, No Foreign Body, No Discharge, No Vision Changes Cardiovascular : No Chest Pain, No SOB, No Dyspnea on Exertion, No Orthopnea, No Edema, No Palpitations Respiratory : No Cough, No Sputum, No Wheezing, No Smoke Exposure, No Dyspnea Gastrointestinal : Complaining of nausea, no vomiting, intermittent diarrhea for couple of weeks, complaining of bilateral upper abdominal pain for 4 months Genitourinary : no irregular bleeding, No Dysuria, No Urinary Frequency, No Hematuria, No Urinary Incontinence, No Urgency, No Flank Pain, No Urinary Flow Changes, No Hesitancy Musculoskeletal : No joint pain, No Myalgias, No Joint Swelling Skin : No Skin Lesions, No rash Neuro : No Weakness, No Numbness, No Paresthesias, No Loss of Consciousness, No Dizziness, complaining of 1 week of a Headache Psych : No Anxiety/Panic, No Depression, No SI/HI/AH/VH, No Social Issues, Heme/Lymph: No Bruising, No Bleeding,No Lymphadenopathy Endocrine : No Polyuria, No Polydipsia, No Temperature Intolerance [facility] Past Medical History Medical History Uterine fibroid Ovarian cyst Asthma Social History Social History Household Members: Family and Children Housing: Apartment Do you presently have visiting nurse or other home services: No Alcohol intake: unknown Patient Tobacco Use Status: Never used Tobacco Smoked in Last 30 Days: No Use of substances other than those prescribed or required for medical reasons: No Advance Directives: No Advance Directives Information Provided: No service: No Physical Exam ED Exam Exam: Appearance: Alert. Oriented X3. No acute distress. Well-appearing, talking on the phone Eyes: Pupils equal, round and reactive to light. No obvious photosensitivity ENT: Pharynx normal. Neck: Normal inspection. Neck supple. No lymph nodes noted. No crepitus CVS: Normal heart rate and rhythm. Pulses normal. Normal S1 and S2 Respiratory: No respiratory distress. Breath sounds normal. No Wheezing. No rales Abdomen: Soft and nontender. No rigidity. No distention. Skin: Skin warm and dry. Normal skin color. Normal skin turgor. Extremities: No lower extremity edema. No Lacerations. No Rash Neuro: Oriented X 3. No motor deficit. No sensory deficit. Moving all extremities. No slurred speech. CN 2 through 12 grossly intact Psych: calm, cooperative, normal affect Vital Signs: Vital Signs - 24 hr 03/20/25 14:27 03/20/25 21:01 03/20/25 22:05 Temperature 98.3 F 97.5 F Pulse Rate 105 H 80 78 Respiratory Rate 16 16 16 Blood Pressure 115/59 L 100/53 L 116/80 Pulse Oximetry 98 98 99 Oxygen Delivery Method Room Air Room Air Room Air 03/21/25 00:49 03/21/25 01:56 Temperature 98.4 F 98.4 F Pulse Rate 85 85 Respiratory Rate 16 16 Blood Pressure 95/54 L 95/54 L Pulse Oximetry 99 99 Oxygen Delivery Method Room Air Room Air BMI result Body Mass Index 27.9 Course Course Course Narrative: Medical screening exam performed. Please refer to detailed history, exam, evaluation, and management by primary provider. Abdominal pain nausea and vomiting. Hemodynamically stable. Medications Administered Discontinued Medications Generic Name Dose Route Start Last Admin Trade Name Freq PRN Reason Stop Dose Admin Dicyclomine HCl 10 mg 03/21/25 00:05 03/21/25 00:09 Dicyclomine Hcl 10 Mg Capsule PO 03/21/25 00:06 10 mg ONCE ONE Administration Diphenhydramine HCl 25 mg 03/20/25 21:13 03/20/25 21:24 Diphenhydramine Hcl 50 Mg/Ml Vial IVPUSH 03/20/25 21:14 25 mg ONCE ONE Administration Sodium Chloride 1,000 mls @ 999 mls/hr 03/20/25 21:13 03/20/25 22:24 Ns IVCONT 03/20/25 22:13 Infused .Q1H1M ONE Infusion Iohexol 85 ml 03/21/25 00:29 03/21/25 00:29 Iohexol 350 Mg/Ml 100 Ml Infus..Btl IV 03/21/25 00:30 85 ml ONCE ONE Administration Ketorolac Tromethamine 30 mg 03/20/25 21:13 03/20/25 21:24 Ketorolac Tromethamine 30 Mg/Ml Vial IVPUSH 03/20/25 21:14 30 mg ONCE ONE Administration Loperamide HCl 4 mg 03/20/25 21:14 03/20/25 21:24 Loperamide Hcl 2 Mg Capsule PO 03/20/25 21:15 4 mg ONCE ONE Administration Metoclopramide HCl 10 mg 03/20/25 21:13 03/20/25 21:24 Metoclopramide Hcl 10 Mg/2 Ml Vial IVPUSH 03/20/25 21:14 10 mg ONCE ONE Administration Medical Decision Making Medical Decision Making [facility] Narrative: My interpretation of labs: No significant abnormality in patient's hematology or chemistry or LFTs. Previously patient has had elevated LFTs which have decreased since patient is cholecystectomy. At this time, no acute findings in the physical exam Receiving IV fluids, IV ketorolac, diphenhydramine, Reglan. And also p.o. loperamide. Patient was also given a dose of Bentyl which seemed to help with the abdominal pain CT scan of the abdomen/pelvis shows trace fluid at the cholecystectomy site. However, it has been improved since the previous CT scan after the patient's cholecystectomy. Patient instructed to follow-up with the primary care physician. Differential Diagnosis Differential Diagnoses: The differential diagnosis associated with the presentation includes (IBS, viral syndrome, incident headache, migraine headache) Admission/Observation Consideration of admission/observation: Escalation of care including admission/observation considered Lab Data MDM Lab Attestation statement: I reviewed the patient's lab results. 03/20/25 14:43 03/20/25 14:43 Labs: Lab Results 03/20/25 03/20/25 Range/Units 14:43 20:59 WBC 7.1 (4.8-10.8) X10*3/uL RBC 4.64 (4.20-5.50) X10*6/uL Hgb 13.3 (12.0-16.0) g/dl Hct 38.0 (37.0-47.0) % MCV 81.9 (80.0-98.0) fL MCH 28.7 (27.0-33.0) pg MCHC 35.0 (31.0-35.0) g/dl RDW 13.3 (11.0-16.0) % Plt Count 277 (160-400) X10*3/uL MPV 9.2 L (9.4-12.3) fL Immature Gran % (Auto) 0.0 (0.0-0.4) % Neut % (Auto) 51.6 (45-73) % Lymph % (Auto) 40.3 H (20-40) % [place] % (Auto) 6.4 (2-11) % Eos % (Auto) 1.1 (0-4) % Baso % (Auto) 0.6 (0-2) % Lymph # (Auto) 2.9 (1.2-4.9) X10*3/uL [place] # (Auto) 0.5 (0.1-1.2) X10*3/uL Eos # (Auto) 0.1 (0.0-0.4) X10*3/uL Baso # (Auto) 0.0 (0.0-0.2) X10*3/uL Abs Immat Gran (auto) 0.00 (0.00-0.03) X10*3/uL Absolute Neuts (auto) 3.7 (2.0-8.3) x10*3/uL Absolute Nucleated RBC 0.000 (0.0-0.012) X10*3/uL Nucleated RBC % (auto) 0.0 (0.0-0.2) /100WBC Sodium 140 (135-145) mmol/L Potassium 3.8 (3.3-5.1) mmol/L Chloride 108 (96-108) mmol/L Carbon Dioxide 24 (22-29) mmol/L Anion Gap 12 (12-20) BUN 11 (9-16) mg/dL Creatinine 0.75 (0.5-1.4) mg/dL Estim Creat Clear Calc 94.4 Estimated GFR > 60 Random Glucose 85 (60-115) mg/dL Calcium 8.8 (8.4-10.2) mg/dL Total Bilirubin 0.5 (0.0-1.0) mg/dL AST 36 H (5-31) U/L ALT 47 H (0-31) U/L Alkaline Phosphatase 104 (39-117) U/L Total Protein 7.3 (6.5-8.0) g/dL Albumin 4.4 (3.5-5.0) g/dL Lipase 28 (8-78) U/L Beta HCG, Quant < 2 mIU/mL Urine Color Yellow Urine Appearance Clear Urine pH 5.0 (5.0-9.0) Ur Specific [place] 1.025 (1.005-1.025) Urine Protein Negative (Neg-Trace) mg/dL Urine Glucose (UA) Negative (Negative) mg/dL Urine Ketones Negative (Negative) mg/dL Urine Blood Negative (Negative) Urine Nitrite Negative (Negative) Ur Leukocyte Esterase Negative (Negative) Urine Test NEGATIVE (NEGATIVE) Independent Interpretation I performed an independent interpretation of an: CT Scan Radiology Impression Discussion of test interpretation with radiology: I have reviewed the radiologist's reading. Radiologist Impression: No consolidation or effusion. Multiple small bilateral renal and liver cysts. Cholecystectomy. Trace fluid at the gallbladder fossa, no enhancement. Abdominal solid organs otherwise unremarkable. No urolithiasis. No bowel obstruction, pneumoperitoneum, or pneumatosis. Mesenteric vessels are patent. Uterus and ovaries unremarkable. Incidental left corpus luteum. Normal appendix. No ascites or hernia. No acute fracture. IMPRESSION: 1. Trace fluid at the cholecystectomy site. Previous gallbladder fossa fluid collection has otherwise resolved. 2. Additional nonacute findings as above Discharge Plan Discharge Clinical Impression: Chronic abdominal pain, Headache Patient Disposition: Home, Self-Care Instructions: Acute Headache (ED), Abdominal Pain (ED) Additional Instructions: Please follow-up with your primary care physician tomorrow. If you have any worsening or new symptoms, please return to the emergency room or call 911 Prescriptions: New dicyclomine 20 mg tablet 20 mg PO BID PRN (Reason: abdominal pain) Qty: 20 0RF sumatriptan succinate 50 mg tablet See Rx Instructions .ROUTE .COMPLEX Qty: 10 0RF Rx Instructions: take 1 tab at onset of headache; if no relief may repeat 1 tab after at least 2 hrs; max = 4 tabs/24 hr No Action docusate sodium [Colace] 100 mg capsule 100 mg PO BID Qty: 30 0RF oxycodone 5 mg tablet 5 mg PO Q6H PRN (Reason: pain) Qty: 16 0RF Rx Instructions: Partial Fill upon patient request. cephalexin 500 mg capsule 500 mg PO Q6H 7 Days Qty: 28 0RF Stand Alone Forms: Work/School Release Interventions: ED Discharge Assessment Last Done: 03/21/25 01:56 Discharge Date/Time: 03/21/25 01:57 Print Language: O[place]i
[2025-03-20 14:50] LABS: MANUAL DIFF FLAG NO
[2025-03-20 14:53] LABS: Hematocrit 38.0 % (37.0-47.0); Hemoglobin 13.3 g/dl (12.0-16.0); Imm Gran Abs Auto 0.00 X10*3/uL (0.00-0.03); Imm Gran Pct Auto 0.0 % (0.0-0.4); Lymphocytes Absolute Auto 2.9 X10*3/uL (1.2-4.9); Mean Corpuscular HGB Conc 35.0 g/dl (31.0-35.0); Mean Corpuscular Hemoglobin 28.7 pg (27.0-33.0); Mean Corpuscular Volume 81.9 fL (80.0-98.0); NRBC Abs Auto 0.000 X10*3/uL (0.0-0.012); NRBC Pct Auto 0.0 /100WBC (0.0-0.2); Platelet Count 277 X10*3/uL (160-400); Red Blood Count 4.64 X10*6/uL (4.20-5.50); White Blood Count 7.1 X10*3/uL (4.8-10.8)
[2025-03-20 15:04] LABS: Alanine Aminotransferase 47 U/L (0-31); Albumin Level 4.4 g/dL (3.5-5.0); Alkaline Phosphatase 104 U/L (39-117); Anion Gap 12 (12-20); Aspartate Amino Transferase 36 U/L (5-31); Blood Urea Nitrogen 11 mg/dL (9-16); Calcium 8.8 mg/dL (8.4-10.2); Carbon Dioxide 24 mmol/L (22-29); Chloride 108 mmol/L (96-108); Creatinine Clr Calc Pharmacy 94.4; Estimated Glomerular Filt Rate > 60; Lipase 28 U/L (8-78); Potassium 3.8 mmol/L (3.3-5.1); Sodium 140 mmol/L (135-145); Total Protein 7.3 g/dL (6.5-8.0)
[2025-03-20 21:01] VITALS: BP 100/53; PULSE 80; RESP 16; TEMP 36.4; O2SAT 98
[2025-03-20 21:18] LABS: Appearance Urine Clear; Glucose Urine UA Negative (Negative); PH 5.0 (5.0-9.0); Specific Gravity - Urine 1.025 (1.005-1.025)
[2025-03-20 21:20] LABS: UPreg QC Valid y
[2025-03-20 22:05] VITALS: BP 116/80; PULSE 78; RESP 16; O2SAT 99
--- NOTE | 2025-03-21 00:10 | PC.NURSE ---
Notified Dr. Hutchison of pt discomfort, medicated per jun.
[2025-03-21] MEDS: iohexoL 350 MG/ML 100 ML INFUS..BTL 85 ML IV (00:29)
[2025-03-21 00:49] VITALS: BP 95/54; PULSE 85; RESP 16; TEMP 36.9; O2SAT 99
--- NOTE | 2025-03-21 01:55 | PC.NURSE ---
reviewed discharge instructions with pt. pt verbalized understanding, no sign of distress upon discharge, pt had a steady gait.
[2025-03-21 01:56] VITALS: BP 95/54; PULSE 85; RESP 16; TEMP 36.9; O2SAT 99
== END 2025-03-21 01:57 | disposition home or self-care (01) ==
PROVIDERS: Physician Assistant; Emergency Provider Emergency Medicine; PCP Dentist General Practice
DX: R10.10 Upper abdominal pain, unspecified (principal); R51.9 Headache, unspecified; Z90.49 Acquired absence of other specified parts of digestive tract; Z79.899 Other long term (current) drug therapy; Z87.42 Personal history of other diseases of the female genital tract
CPT/HCPCS: 36415; 74177; 80053; 81003; 81025; 83690; 84702; 85025; 96361; 96374; 96375; 99285; J1200; J1885; J2765; Q9967

== ENCOUNTER → 2025-03-21 | Outpatient (BNV) | payer MEDICAID, SELFPAY | PROVIDERS: Emergency Provider Emergency Medicine; PCP Dentist General Practice; Visit Provider Radiology Diagnostic Radiology | DX: R10.10 Upper abdominal pain, unspecified (principal); Z90.49 Acquired absence of other specified parts of digestive tract | CPT/HCPCS: 74177 ==